=== PATIENT | male | born 1960 | race Two or more races ===

== ENCOUNTER 2016-09-24 08:53 | Inpatient (IN) | payer MEDICARE, MEDICAID ==
[~2016-09-24] VITALS: Ht 177.8 cm; Wt 77.6 kg
[~2016-09-24 08:53] MED LIST: ASPI-869 PO; CLOP75TA2 PO; IBUP-1955 PO; METF-494 PO; METO50TA3 PO; SITA25TA PO; [UNRECOGNIZED DRUG - CODE]
[2016-09-24 09:23] LABS: *BILIRUBIN,URIN NEGATIVE (NEGATIVE); *BLOOD, URINE NEGATIVE (NEGATIVE); *CLARITY,URINE CLEAR (CLEAR); *COLOR,URINE YELLOW (YELLOW); *KETONES,URINE NEGATIVE (NEGATIVE); *PROTEIN,URINE NEGATIVE (NEGATIVE); LEUKOCYTE ESTERASE ,URINE NEGATIVE (NEGATIVE); NITRITE, URINE NEGATIVE (NEGATIVE); UGLUCOSE TRACE (NEGATIVE)
[2016-09-24 09:28] LABS: CALCIUM 9.2 mg/dL (8.5-10.1); CARBON DIOXIDE 30 mmol/L (21-32); CHLORIDE 102 mmol/L (98-107); GFR 78 mL/min (>60); GLUCOSE 248 mg/dL (74-106); POTASSIUM 4.1 mmol/L (3.5-5.1); SODIUM SERUM 140 mmol/L (136-145); UREA NITROGEN, BLOOD 11 mg/dL (7-18)
[2016-09-24 09:33] LABS: ALANINE AMINOTRANSFERASE 37 U/L (16-63); ALBUMIN 4.5 g/dL (3.4-5.0); ALKALINE PHOSPHATASE 71 U/L (50-136); ASPARTATE AMINOTRANSFERASE 20 U/L (15-37); BASOPHILS # (AUTO) 0.1 K/uL (0.0-8.0); BASOPHILS % (AUTO) 0.6 % (0.0-2.0); BILIRUBIN,DIRECT 0.1 mg/dL (0.0-0.2); BILIRUBIN,TOTAL 0.7 mg/dL (0.2-1.0); EOSINOPHILS # (AUTO) 0.1 K/uL (0.0-0.7); EOSINOPHILS % (AUTO) 0.8 % (0.0-7.0); ETHANOL < 3 MG/DL (0-0); HEMATOCRIT 47.7 % (40-50); HEMOGLOBIN 17.3 G/DL (14.0-18.0); LYMPHOCYTES # (AUTO) 1.5 K/uL (20.0-40.0); MEAN CORPUSCULAR HEMOGLOBIN 32.6 UUG (27.0-31.0); MEAN CORPUSCULAR HGB CONC 36 g/dL (32.0-37.0); MEAN CORPUSCULAR VOLUME 89.6 FL (82.0-92.0); MONOCYTES # (AUTO) 0.5 K/uL (2.0-10.0); MONOCYTES % (AUTO) 5.7 % (0.0-11.0); NEUTROPHILS # (AUTO) 6.5 K/uL (1.8-8.9); NEUTROPHILS % (AUTO) 75.9 % (38.5-71.5); RED BLOOD CELL COUNT(AUTO) 5.32 MIL/UL (4.7-6.1); RED CELL DISTRIBUTION WIDTH 12.3 % (11.5-14.5); TOTAL PROTEIN, SERUM 7.9 g/dL (6.4-8.2)
[2016-09-24 09:34] LABS: PLATELET COUNT (AUTO) 139 K/UL (150-450)
[2016-09-24 09:35] LABS: TROPONIN I < 0.017 ng/mL (0.00-0.056); WHITE BLOOD COUNT (AUTO) 8.7 K/UL (4.0-11.2)
[2016-09-24 09:36] LABS: ACETAMINOPHEN < 2.0 ug/mL (10-30)
[2016-09-24 09:43] LABS: *AMPHETAMINE, URINE NEGATIVE (NEGATIVE); *BARBITURATE, URINE NEGATIVE (NEGATIVE); *CANNABINOID, URINE POSITIVE (NEGATIVE); *COCCAINE, URINE NEGATIVE (NEGATIVE); *OPIATE, URINE POSITIVE (NEGATIVE); *PHENCYCLIDINE SCREEN,URINE NEGATIVE (NEGATIVE)
[2016-09-24 09:44] LABS: BACTERIA,URINE NONE SEEN /HPF (NONE SEEN); RBC,URINE 0-3 /HPF (0-3); SQUAMOUS EPITHELIAL CELL,UR FEW /HPF (NONE SEEN); URINE AMORPHOUS PHOSPHATES FEW /HPF; WBC,URINE 0-3 /HPF (0-3)
[2016-09-24 09:45] LABS: MUCUS,URINE FEW /LPF (0-FEW)
[2016-09-24 09:46] LABS: AMMONIA < 10 umol/L (11-32)
[2016-09-24 09:48] LABS: LACTIC ACID 1.8 mmol/L (0.4-2.0)
[2016-09-24 10:43] LABS: THYROID STIMULATING HORMONE 1.328 mIU/mL (0.358-3.740)
[2016-09-24 12:30] VITALS: BP 134/85
[2016-09-24] MEDS ORDERED: LORAZEPAM 1 MG TABLET PO PRN (13:00)
[2016-09-24] MEDS ORDERED: MAG HYDROX/AL HYDROX/SIMETH 30 ML LIQUID UDC PO PRN (13:00)
[2016-09-24] MEDS ORDERED: MAGNESIUM HYDROXIDE 30 ML LIQUID UDC PO PRN (13:00)
[2016-09-24] MEDS ORDERED: ACETAMINOPHEN 325 MG TABLET PO PRN (13:00)
[2016-09-24] MEDS ORDERED: QUET100T PO (13:15)
[2016-09-24] MEDS ORDERED: QUET25TA PO (13:15)
[2016-09-24] MEDS ORDERED: DEXTROSE 50% 50 ML DISP.SYRIN IV PRN (15:00)
[2016-09-24 15:44] VITALS: BP 127/66
[2016-09-24] MEDS: BLOOD SUGAR DIAGNOSTIC 1 EACH STRIP VI SCH ×2 (16:34→20:19)
[2016-09-24] MEDS: INSULIN REGULAR, HUMAN 300 UNIT/3 ML VIAL SQ PRN ×2 (16:51→20:19)
[2016-09-24] MEDS: NICOTINE 21 MG/24HR PATCH TD SCH (16:53)
[2016-09-24 20:00] VITALS: BP 127/82
[2016-09-24] MEDS: TEMAZEPAM 7.5 MG CAPSULE PO PRN (20:17)
[2016-09-24] MEDS: CLOPIDOGREL 75 MG TABLET PO SCH (20:17)
[2016-09-25] MEDS: BLOOD SUGAR DIAGNOSTIC 1 EACH STRIP VI SCH ×4 (06:42→20:38)
[2016-09-25 07:30] VITALS: BP 115/86
[2016-09-25] MEDS: LINAGLIPTIN 5 MG TABLET PO SCH (08:05)
[2016-09-25] MEDS: ASPIRIN EC 81 MG TABLET.DR PO SCH (08:06)
[2016-09-25] MEDS: NICOTINE 21 MG/24HR PATCH TD SCH (08:06)
[2016-09-25] MEDS: INSULIN REGULAR, HUMAN 300 UNIT/3 ML VIAL SQ PRN ×3 (08:07→20:49)
[2016-09-25] MEDS ORDERED: Medication Not On Formulary EA (Metformin Hcl (Metformin Hcl Er) 1 TAB) PO SCH (09:00)
[2016-09-25 15:34] VITALS: BP 134/90
[2016-09-25 20:00] VITALS: BP 136/84
[2016-09-25] MEDS: CLOPIDOGREL 75 MG TABLET PO SCH (20:39)
[2016-09-25] MEDS: ATORVASTATIN 10 MG TABLET PO SCH (20:39)
[2016-09-25] MEDS: risperiDONE 1 MG TABLET PO SCH (20:40)
[2016-09-25] MEDS: HYDROCODONE/APAP 5-325MG TABLET PO PRN (22:24)
[2016-09-25] MEDS: TEMAZEPAM 7.5 MG CAPSULE PO PRN (23:47)
[2016-09-26] MEDS: BLOOD SUGAR DIAGNOSTIC 1 EACH STRIP VI SCH ×4 (06:18→20:26)
[2016-09-26 07:30] VITALS: BP 126/89
[2016-09-26] MEDS: LINAGLIPTIN 5 MG TABLET PO SCH (08:33)
[2016-09-26] MEDS: risperiDONE 1 MG TABLET PO SCH (08:34)
[2016-09-26] MEDS: ASPIRIN EC 81 MG TABLET.DR PO SCH (08:34)
[2016-09-26] MEDS: NICOTINE 21 MG/24HR PATCH TD SCH (08:34)
[2016-09-26] MEDS: INSULIN REGULAR, HUMAN 300 UNIT/3 ML VIAL SQ PRN ×3 (08:36→16:46)
[2016-09-26] MEDS: HYDROCODONE/APAP 5-325MG TABLET PO PRN ×2 (08:43→20:31)
[2016-09-26] MEDS ORDERED: DEXTROSE 50% 50 ML DISP.SYRIN IV PRN (10:15)
[2016-09-26 15:12] VITALS: BP 140/86
[2016-09-26] MEDS: risperiDONE 2 MG TABLET PO SCH (20:26)
[2016-09-26] MEDS: ATORVASTATIN 10 MG TABLET PO SCH (20:27)
[2016-09-26] MEDS: CLOPIDOGREL 75 MG TABLET PO SCH (20:27)
[2016-09-26 20:30] VITALS: BP 122/76
[2016-09-26] MEDS: INSULIN REGULAR, HUMAN 300 UNITS/3 ML VIAL SQ PRN (20:35)
[2016-09-26] MEDS: TEMAZEPAM 7.5 MG CAPSULE PO PRN (22:32)
[2016-09-27] MEDS: BLOOD SUGAR DIAGNOSTIC 1 EACH STRIP VI SCH ×4 (06:13→20:13)
[2016-09-27 07:30] VITALS: BP 126/56
[2016-09-27] MEDS: INSULIN REGULAR, HUMAN 300 UNIT/3 ML VIAL SQ PRN ×2 (07:43→10:50)
[2016-09-27] MEDS: risperiDONE 1 MG TABLET PO SCH (08:00)
[2016-09-27] MEDS: LINAGLIPTIN 5 MG TABLET PO SCH (08:00)
[2016-09-27] MEDS: ASPIRIN EC 81 MG TABLET.DR PO SCH (08:00)
[2016-09-27] MEDS: NICOTINE 21 MG/24HR PATCH TD SCH (08:00)
[2016-09-27 16:00] VITALS: BP 116/83
[2016-09-27] MEDS ORDERED: CLONIDINE HCL 0.1 MG TABLET PO PRN (16:15)
[2016-09-27] MEDS: HYDROCODONE/APAP 5-325MG TABLET PO PRN (19:37)
[2016-09-27 19:45] VITALS: BP 126/90
[2016-09-27] MEDS: CLOPIDOGREL 75 MG TABLET PO SCH (20:05)
[2016-09-27] MEDS: ATORVASTATIN 10 MG TABLET PO SCH (20:05)
[2016-09-27] MEDS: risperiDONE 2 MG TABLET PO SCH (20:05)
[2016-09-27] MEDS: INSULIN REGULAR, HUMAN 300 UNITS/3 ML VIAL SQ PRN (20:26)
[2016-09-27] MEDS: TEMAZEPAM 7.5 MG CAPSULE PO PRN (22:41)
[2016-09-28] MEDS: BLOOD SUGAR DIAGNOSTIC 1 EACH STRIP VI SCH (06:15)
[2016-09-28 07:30] VITALS: BP 129/95
[2016-09-28] MEDS: NICOTINE 21 MG/24HR PATCH TD SCH (08:38)
[2016-09-28] MEDS: risperiDONE 1 MG TABLET PO SCH (08:39)
[2016-09-28] MEDS: ASPIRIN EC 81 MG TABLET.DR PO SCH (08:39)
[2016-09-28] MEDS: LINAGLIPTIN 5 MG TABLET PO SCH (08:43)
== END 2016-09-28 09:30 | disposition home or self-care (01) | DRG 885 ==
LOC: ER 08:55 → GPS 12:07
PROVIDERS: ADMIT Internal Medicine; ATTEND Psychiatry & Neurology Psychiatry
DX: F29 Unspecified psychosis not due to a substance or known physiological condition (principal); E11.65 Type 2 diabetes mellitus with hyperglycemia; D69.6 Thrombocytopenia, unspecified; E78.5 Hyperlipidemia, unspecified; I10 Essential (primary) hypertension; I25.10 Atherosclerotic heart disease of native coronary artery without angina pectoris; I25.2 Old myocardial infarction; M47.812 Spondylosis without myelopathy or radiculopathy, cervical region; J45.909 Unspecified asthma, uncomplicated; M50.30 Other cervical disc degeneration, unspecified cervical region; M47.814 Spondylosis without myelopathy or radiculopathy, thoracic region; F17.210 Nicotine dependence, cigarettes, uncomplicated; Z98.61 Coronary angioplasty status; I35.1 Nonrheumatic aortic (valve) insufficiency; R90.89 Other abnormal findings on diagnostic imaging of central nervous system; Z91.5 Personal history of self-harm; G89.29 Other chronic pain; Z79.899 Other long term (current) drug therapy; F20.0 Paranoid schizophrenia; F12.10 Cannabis abuse, uncomplicated; R93.1 Abnormal findings on diagnostic imaging of heart and coronary circulation
CPT/HCPCS: 36415; 70030-TC; 70450; 71010; 72125; 80307; 83605; 84443; 85025; 85730; 87040; 87086; 93005; 97001; A4663; G0480-TC; G6040-TC; J1815

== ENCOUNTER 2016-12-12 23:14 | Emergency (ER) | payer MEDICARE, MEDICAID ==
[~2016-12-12] VITALS: Ht 180.3 cm; Wt 84.8 kg
[~2016-12-12 23:14] MED LIST changes: +CLOP75TA15 PO; -CLOP75TA2 PO
--- NOTE | 2016-12-12 23:52 | NUR ---
Patient BIB private ambulance for increased agitation and confusion/patient has been refusing his medications/and patient has been having visual hallucinations. Information obtained from daughter who is at bedside. To room 5A.
[2016-12-13 00:31] LABS: CARBON DIOXIDE 23 mmol/L (21-32); CHLORIDE 102 mmol/L (98-107); CREATININE 1.2 mg/dL (0.6-1.3); ETHANOL 5 MG/DL (0-0); GLUCOSE 297 mg/dL (74-106); POTASSIUM 4.3 mmol/L (3.5-5.1); UREA NITROGEN, BLOOD 13 mg/dL (7-18)
[2016-12-13 00:40] LABS: ALANINE AMINOTRANSFERASE 21 U/L (16-63); ALKALINE PHOSPHATASE 61 U/L (50-136); ASPARTATE AMINOTRANSFERASE 10 U/L (15-37); BASOPHILS # (AUTO) 0.1 K/uL (0.0-8.0); BASOPHILS % (AUTO) 0.7 % (0.0-2.0); BILIRUBIN,DIRECT 0.1 mg/dL (0.0-0.2); BILIRUBIN,TOTAL 0.5 mg/dL (0.2-1.0); EOSINOPHILS # (AUTO) 0.1 K/uL (0.0-0.7); EOSINOPHILS % (AUTO) 0.5 % (0.0-7.0); HEMATOCRIT 47.1 % (40-50); HEMOGLOBIN 16.5 G/DL (14.0-18.0); LYMPHOCYTES # (AUTO) 2.4 K/UL (0.8-4.8); LYMPHOCYTES % (AUTO) 17.9 % (20.5-51.5); MEAN CORPUSCULAR HEMOGLOBIN 31.8 UUG (27.0-31.0); MEAN CORPUSCULAR HGB CONC 35 g/dL (32.0-37.0); MEAN CORPUSCULAR VOLUME 90.9 FL (82.0-92.0); MONOCYTES # (AUTO) 0.7 K/UL (0.1-1.30); MONOCYTES % (AUTO) 5.1 % (0.0-11.0); NEUTROPHILS # (AUTO) 9.9 K/UL (1.8-8.9); NEUTROPHILS % (AUTO) 75.8 % (38.5-71.5); PLATELET COUNT (AUTO) 160 K/UL (150-450); RED BLOOD CELL COUNT(AUTO) 5.18 MIL/UL (4.7-6.1); TOTAL PROTEIN, SERUM 7.1 g/dL (6.4-8.2); WHITE BLOOD COUNT (AUTO) 13.2 K/UL (4.0-11.2)
[2016-12-13 00:44] LABS: THYROID STIMULATING HORMONE 1.525 mIU/mL (0.358-3.740)
[2016-12-13 00:47] LABS: ACETAMINOPHEN < 2.0 ug/mL (10-30)
[2016-12-13 00:54] LABS: *BILIRUBIN,URIN NEGATIVE (NEGATIVE); *BLOOD, URINE NEGATIVE (NEGATIVE); *CLARITY,URINE CLEAR (CLEAR); *COLOR,URINE YELLOW (YELLOW); *KETONES,URINE NEGATIVE (NEGATIVE); *PROTEIN,URINE NEGATIVE (NEGATIVE); *UROBILINOGEN,URINE 0.2 E.U./dl (NORMAL); LEUKOCYTE ESTERASE ,URINE NEGATIVE (NEGATIVE); NITRITE, URINE NEGATIVE (NEGATIVE); UGLUCOSE 2+ (NEGATIVE)
[2016-12-13 00:58] LABS: *AMPHETAMINE, URINE NEGATIVE (NEGATIVE); *BARBITURATE, URINE NEGATIVE (NEGATIVE); *CANNABINOID, URINE POSITIVE (NEGATIVE); *COCCAINE, URINE NEGATIVE (NEGATIVE); *OPIATE, URINE POSITIVE (NEGATIVE); *PHENCYCLIDINE SCREEN,URINE NEGATIVE (NEGATIVE)
[2016-12-13 01:01] LABS: BACTERIA,URINE FEW /HPF (NONE SEEN); RBC,URINE 0-3 /HPF (0-3); SQUAMOUS EPITHELIAL CELL,UR FEW /HPF (NONE SEEN); WBC,URINE 0-3 /HPF (0-3)
--- NOTE | 2016-12-13 02:30 | NUR ---
Jacinto Villa at bedside for PET Evaluation.
--- NOTE | 2016-12-13 03:20 | NUR ---
Jacinto Villa (PET team) informed staff that he is unable to locate an available bed at this time. He will attempt to place patient in morning and patient to remain in ER until an available bed can be located.
[2016-12-13] MEDS: LORAZEPAM 0.5 MG TABLET PO ONE (03:22)
[2016-12-13] MEDS ORDERED: LORAZEPAM 1 MG TABLET ONE (03:32)
--- NOTE | 2016-12-13 03:59 | NUR ---
Patient is resting comfortably in bed with eyes closed
--- NOTE | 2016-12-13 05:10 | NUR ---
Patient is resting comfortably in bed with eyes closed
--- NOTE | 2016-12-13 06:30 | NUR ---
Signed out by Dr. Hampton. On 1602. Seen by Jacinto. Pending transfer this AM. Medically stable for psych.
--- NOTE | 2016-12-13 07:32 | NUR ---
Pt recieved in bed w/ both eyes closed, NAD noted. 1 to 1 sitter at the bedside for satety.
--- NOTE | 2016-12-13 08:04 | NUR ---
Pt ate breakfast prior to checking his blood glucose.
--- NOTE | 2016-12-13 08:45 | NUR ---
Spoke to Valerio (Psych intake at [facility]), awaiting for bed availibity and info. Pt is resting comfortably in bed, NAD noted.
--- NOTE | 2016-12-13 10:52 | NUR ---
Spoke to VU (IRENE sup), bed info provided. Called [facility] for transfer.
--- NOTE | 2016-12-13 11:44 | NUR ---
REPORT GIVEN TO MELISA. ALVARES AT [facility].
--- NOTE | 2016-12-13 12:06 | NUR ---
REPORT GIVEN TO EMT'S TRANSFER UNIT. PT LEFT ER IN STABLE CONDITION AND ALL BELONING SENT W/ PT WELL THE ORIGINAL 1423 PAPER WORK.
== END 2016-12-13 12:16 | disposition short-term general hospital (02) ==
LOC: ER 23:24
DX: F23 Brief psychotic disorder (principal); I10 Essential (primary) hypertension; E78.5 Hyperlipidemia, unspecified; Z95.5 Presence of coronary angioplasty implant and graft; E11.9 Type 2 diabetes mellitus without complications; F20.9 Schizophrenia, unspecified; F17.200 Nicotine dependence, unspecified, uncomplicated; Z91.018 Allergy to other foods; Z79.82 Long term (current) use of aspirin
CPT/HCPCS: 36415; 71010; 80307; 84443; 85025; 93005; A4663; G0480; G0480-TC

== ENCOUNTER 2017-08-14 13:01 | Inpatient (IN) | payer MEDICARE, MEDICAID ==
[~2017-08-14] VITALS: Ht 177.8 cm; Wt 74.8 kg
[~2017-08-14 13:01] MED LIST changes: +METO50TA16 PO; -METO50TA3 PO
--- NOTE | 2017-08-14 14:13 | NUR ---
PT IS IN ROOM #2B. DR FORD EVALUATED THE PT.
[2017-08-14] MEDS ORDERED: DEXA4TAB PO (14:16)
[2017-08-14] MEDS ORDERED: METO-356 PO (14:16)
[2017-08-14] MEDS ORDERED: PREG75CA PO (14:16)
[2017-08-14] MEDS ORDERED: GLIP5TAB13 PO (14:16)
[2017-08-14] MEDS ORDERED: FLUO20TA28 PO (14:16)
[2017-08-14] MEDS ORDERED: FLUC150T5 PO (14:16)
[2017-08-14] MEDS ORDERED: FLUT16SP NS (14:16)
[2017-08-14] MEDS ORDERED: MELO-107 PO (14:16)
[2017-08-14] MEDS ORDERED: SITA1TAB2 PO (14:16)
[2017-08-14] MEDS ORDERED: DONE5TAB34 PO (14:16)
[2017-08-14] MEDS ORDERED: VARE1TAB21 PO (14:16)
[2017-08-14] MEDS ORDERED: CHLO1LIQ MC (14:16)
[2017-08-14] MEDS ORDERED: SITA100T PO (14:16)
[2017-08-14] MEDS ORDERED: CEFU500T66 PO (14:16)
[2017-08-14] MEDS ORDERED: CLON0.5T4 PO (14:16)
[2017-08-14] MEDS ORDERED: IBUP-1955 PO (14:38)
[2017-08-14] MEDS ORDERED: BLOO-170 IN (14:38)
[2017-08-14] MEDS ORDERED: QUET100T PO (14:38)
[2017-08-14] MEDS ORDERED: QUET25TA PO (14:38)
[2017-08-14] MEDS ORDERED: ALPR0.5T PO (14:38)
[2017-08-14] MEDS ORDERED: ATOR40TA PO (14:38)
[2017-08-14] MEDS ORDERED: HYDR-548 PO (14:38)
[2017-08-14] MEDS ORDERED: ARIP5TAB10 PO (14:38)
[2017-08-14] MEDS ORDERED: ACET1TAB23 PO (14:38)
[2017-08-14] MEDS ORDERED: NAPR500T6 PO (14:38)
[2017-08-14] MEDS ORDERED: SUMA100T16 PO (14:38)
[2017-08-14] MEDS ORDERED: D-ME118S12 PO (14:38)
[2017-08-14] MEDS ORDERED: PRIM50TA PO (14:38)
[2017-08-14] MEDS ORDERED: RISP3TAB14 PO (14:38)
[2017-08-14] MEDS ORDERED: BUDE10.2 IH (14:38)
[2017-08-14] MEDS ORDERED: CYCL30DR OP (14:38)
[2017-08-14] MEDS ORDERED: OMEP40CA37 PO (14:38)
[2017-08-14] MEDS ORDERED: ROSU10TA PO (14:38)
[2017-08-14 14:53] LABS: BASOPHILS # (AUTO) 0.1 K/uL (0.0-8.0); BASOPHILS % (AUTO) 0.9 % (0.0-2.0); EOSINOPHILS # (AUTO) 0.1 K/uL (0.0-0.7); EOSINOPHILS % (AUTO) 0.6 % (0.0-7.0); HEMATOCRIT 46.3 % (36.7-47.1); HEMOGLOBIN 16.4 g/dL (12.5-16.3); LYMPHOCYTES % (AUTO) 20.5 % (20.5-51.5); MEAN CORPUSCULAR HEMOGLOBIN 31.5 uug (23.8-33.4); MEAN CORPUSCULAR HGB CONC 35 g/dL (32.5-36.3); MEAN CORPUSCULAR VOLUME 89.1 fL (73.0-96.2); MONOCYTES # (AUTO) 0.9 K/uL (2.0-10.0); MONOCYTES % (AUTO) 9.3 % (0.0-11.0); NEUTROPHILS # (AUTO) 6.6 K/uL (1.8-8.9); NEUTROPHILS % (AUTO) 68.7 % (38.5-71.5); PLATELET COUNT (AUTO) 138 K/uL (152-348); RED BLOOD CELL COUNT(AUTO) 5.19 MIL/uL (4.06-5.63); WHITE BLOOD COUNT (AUTO) 9.6 K/uL (3.6-10.2)
[2017-08-14 15:01] LABS: CARBON DIOXIDE 26 mmol/L (21-32); CHLORIDE 102 mmol/L (98-107); GLUCOSE 149 mg/dL (74-106); POTASSIUM 3.8 mmol/L (3.5-5.1); UREA NITROGEN, BLOOD 14 mg/dL (7-18)
[2017-08-14 15:07] LABS: ALANINE AMINOTRANSFERASE 19 U/L (16-63); ALKALINE PHOSPHATASE 53 U/L (50-136); ASPARTATE AMINOTRANSFERASE 10 U/L (15-37); BILIRUBIN,DIRECT 0.2 mg/dL (0.0-0.2); BILIRUBIN,TOTAL 1.1 mg/dL (0.2-1.0); TOTAL PROTEIN, SERUM 7.1 g/dL (6.4-8.2)
[2017-08-14 15:09] LABS: ACETAMINOPHEN < 2.0 ug/mL (10-30)
[2017-08-14 15:21] LABS: *BILIRUBIN,URIN NEGATIVE (NEGATIVE); *BLOOD, URINE NEGATIVE (NEGATIVE); *CLARITY,URINE CLEAR (CLEAR); *COLOR,URINE YELLOW (YELLOW); *KETONES,URINE NEGATIVE (NEGATIVE); *PROTEIN,URINE NEGATIVE (NEGATIVE); *UROBILINOGEN,URINE 0.2 E.U./dl (NORMAL); LEUKOCYTE ESTERASE ,URINE NEGATIVE (NEGATIVE); NITRITE, URINE NEGATIVE (NEGATIVE); PH,URINE 5.5 (5.0-8.0); UGLUCOSE NEGATIVE (NEGATIVE)
[2017-08-14 15:22] LABS: ETHANOL < 3 MG/DL (0-0)
[2017-08-14 15:26] LABS: *AMPHETAMINE, URINE NEGATIVE (NEGATIVE); *BARBITURATE, URINE NEGATIVE (NEGATIVE); *CANNABINOID, URINE NEGATIVE (NEGATIVE); *COCCAINE, URINE NEGATIVE (NEGATIVE); *OPIATE, URINE NEGATIVE (NEGATIVE); *PHENCYCLIDINE SCREEN,URINE NEGATIVE (NEGATIVE)
[2017-08-14 15:30] LABS: THYROID STIMULATING HORMONE 3.144 mIU/mL (0.358-3.740)
[2017-08-14 15:39] LABS: WBC,URINE 0-3 /HPF (0-3)
--- NOTE | 2017-08-14 15:45 | NUR ---
CRISIS EXTRACTOR FILLER ANGELA CORCORAN WAS CALLED. TORY IS 1 HOUR. PT IS RESTING IN BED COMFORTABLY. NO S/S OF ACUTE DISTRESS. CONTINUE TO MONITOR THE PT.
--- NOTE | 2017-08-14 18:43 | NUR ---
PT WAS EVALUATED BY ANGELA CORCORAN. REPORT WAS GIVEN TO MHU RN DEAN. REPORT WAS GIVEN TO REQUIREMENTS MANAGER RN.
--- NOTE | 2017-08-14 19:33 | NUR ---
PT IN ROUTE TO [facility]
[2017-08-14 20:00] VITALS: BP 129/85
[2017-08-14] MEDS ORDERED: MAGNESIUM HYDROXIDE 30 ML LIQUID UDC PO PRN (20:15)
[2017-08-14] MEDS ORDERED: MAG HYDROX/AL HYDROX/SIMETH 30 ML LIQUID UDC PO PRN (20:15)
[2017-08-14] MEDS: TEMAZEPAM 7.5 MG CAPSULE PO PRN (21:22)
[2017-08-14] MEDS: ACETAMINOPHEN 325 MG TABLET PO PRN (21:22)
--- NOTE | 2017-08-14 21:22 | NUR ---
PATIENT COMPLAIN OF INSOMNIA AND GEN BODY PAIN, GIVEN TYLENOL AND RESTORIL FOR SLEEP, INSTRUCTED TO STAY IN BED AND NOT TO AMBULATE UNLESS ITS NECESSARY, CONT TO MONITOR.
[2017-08-14] MEDS ORDERED: DEXTROSE 50% 50 ML DISP.SYRIN IV PRN (22:00)
--- NOTE | 2017-08-14 22:36 | NUR ---
PATIENT RECEIVED FROM ER AT 2130 VIA [facility]. PATIENT CALM, COOPERATIVE, HAS FLAT AFFECT, ANXIOUS, PARANOID, SUSPICIOUS. PATIENT REFUSED TO SIGN ADMISSION PAPER, BUT WAS ABLE TO ANSWER BASIC QUESTIONS. PATIENT STATED A DAILY SMOKER, SMOKING 1 PACK DAILY. PATIENT DENIES ALCOHOL OR DRUG USE, HOWEVER READING PAST HISTORY PATIENT SUBSTANCE ABUSE MARIJUANA. SKIN SHOWS ABRASION TO LEFT AND RIGHT LEGS, SCABS TO BACK. PATIENT IS AMBULATORY CONTINENT OF BOWEL AND BLADDER. PATIENT DENIES SI, WILL CONTINUE TO MONITOR. PATIENT ORIENTED TO UNIT, ROOM, AND RESTROOM. PATIENT RIGHTS HANDBOOK GIVEN AND ADVISEMENT. DR. MONZON AND NAS NOTIFIED OF ADMISSION.
--- NOTE | 2017-08-15 05:02 | NUR ---
PATIENT SLEPT FOR FEW HOURS, NO FURTHER COMPLAIN OF PAIN, PATIENT REQUESTED TO NOT TAKE HIS BLOOD PRESSURE BECAUSE HE STATED THAT "IT HURTS HIS MULTIPLE STENT ON HIS CHEST WHEN BLOOD PRESSURE IS TAKEN," STATED THAT "I FELT I'M GOING TO EVERY TIME TAKE MY BLOOD PRESSURE", REDIRECT PATIENT THAT CHECK BP IS IMPORTANT BEFORE GIVING HIM HIS MEDICATIONS, AND IT'S PART OF CARE TO CHECK VITAL SIGNS, PATIENT HAS STRONG BELIEF THAT IT' WILL HURT HIM EVERY BP IS TAKEN. CONT TO MONITOR.
[2017-08-15] MEDS: BLOOD SUGAR DIAGNOSTIC 1 EACH STRIP VI SCH ×4 (06:51→21:04)
[2017-08-15] MEDS: INSULIN REGULAR, HUMAN 300 UNIT/3 ML VIAL SQ PRN ×3 (08:09→16:51)
[2017-08-15] MEDS: NICOTINE 14 MG/24HR PATCH TD SCH (09:19)
[2017-08-15] MEDS: HYDROCODONE/APAP 5-325MG TABLET PO PRN ×3 (09:20→23:49)
[2017-08-15] MEDS: PREGABALIN 25 MG CAPSULE PO SCH (12:21)
[2017-08-15] MEDS ORDERED: SITA1TAB2 PO (12:31)
--- NOTE | 2017-08-15 13:48 | NUR ---
PATIENT VISIBLE IN DAYROOM IN AM, ANXIOUS AFFECT, GUARDED, NO INTERACTION WITH PEERS AND STAFF, ATE 100% BREAKFAST AND LUNCH, BS RESULT IN AM 141, 2 UNITS REGULAR INSULIN GIVEN AND AT MAFG=590, 4 UNITS REGULAR INSULIN GIVEN. MEDICATION COMPLIANT AND COOPERATIVE, C/O H/A, KNEE PAIN AT 8/10, NORCO 1 TABLET PO GIVEN AT 0815, REASSESSED IN AN HOUR, PATIENT STATES PARTIALLY EFFECTIVE. DENIES SUICIDAL IDEATIONS, DENIES HEARING VOICES. PATIENT WENT TO HIS ROOM AFTER LUNCH. WILL CONTINUE TO MONITOR FOR SAFETY, NEEDS AND BEHAVIORAL CHANGES.
--- NOTE | 2017-08-15 15:34 | NUR ---
PATIENT SPENT TIME SLEEPING IN HIS ROOM AFTER LUNCH. SEEN BY DR. MONZON.
[2017-08-15] MEDS: FLUTICASONE PROP NASAL SPRAY 16 GM BOTTLE NS SCH (17:00)
[2017-08-15] MEDS ORDERED: Medication Not On Formulary EA (Pregabalin (Lyrica) 75 MG) PO SCH (17:00)
[2017-08-15] MEDS: SITAGLIPTIN PHOSPHATE 50 MG TABLET PO SCH (17:03)
[2017-08-15] MEDS: glipiZIDE 5 MG TABLET PO SCH (17:03)
[2017-08-15] MEDS: METFORMIN HCL 500 MG TABLET PO SCH (17:03)
[2017-08-15] MEDS: PRIMIDONE 50 MG TABLET PO SCH (17:08)
--- NOTE | 2017-08-15 20:00 | NUR ---
refused vital signs.
[2017-08-15] MEDS: risperiDONE 1 MG TABLET PO SCH (20:49)
[2017-08-15] MEDS: ATORVASTATIN 40 MG TABLET PO SCH (20:49)
[2017-08-15] MEDS: ACETAMINOPHEN 325 MG TABLET PO PRN (20:58)
[2017-08-15] MEDS ORDERED: risperiDONE 1 MG TABLET PO SCH (21:00)
--- NOTE | 2017-08-15 22:00 | NUR ---
received to care, lying in bed, pleasant upon approach. compliant with medications and staff direction. as of 0, he appears to be asleep. no distress noted. will continue to monitor closely.
[2017-08-16] MEDS: HYDROCODONE/APAP 5-325MG TABLET PO PRN ×3 (06:15→21:41)
[2017-08-16] MEDS: BLOOD SUGAR DIAGNOSTIC 1 EACH STRIP VI SCH ×4 (06:16→20:05)
[2017-08-16] MEDS: PANTOPRAZOLE SODIUM 40 MG TABLET.DR PO SCH (07:00)
--- NOTE | 2017-08-16 07:15 | NUR ---
slept 6.5 hours, total. PRN cyrus was given twice this shift, once at 2349, then again at 0615. as of 714, he states good relief from med. refused am labs, and protonix. no distress noted.
[2017-08-16] MEDS: PREGABALIN 25 MG CAPSULE PO SCH (08:50)
[2017-08-16] MEDS: risperiDONE 1 MG TABLET PO SCH ×2 (08:51→20:35)
[2017-08-16] MEDS: METFORMIN HCL 500 MG TABLET PO SCH ×2 (08:51→17:05)
[2017-08-16] MEDS: CLOPIDOGREL 75 MG TABLET PO SCH (08:51)
[2017-08-16] MEDS: glipiZIDE 5 MG TABLET PO SCH ×2 (08:51→17:05)
[2017-08-16] MEDS: SITAGLIPTIN PHOSPHATE 50 MG TABLET PO SCH ×2 (08:52→17:05)
[2017-08-16] MEDS: FLUTICASONE PROP NASAL SPRAY 16 GM BOTTLE NS SCH (08:52)
[2017-08-16] MEDS: NICOTINE 14 MG/24HR PATCH TD SCH (08:53)
[2017-08-16] MEDS: PRIMIDONE 50 MG TABLET PO SCH ×2 (08:53→17:05)
[2017-08-16] MEDS: METOPROLOL SUCCINATE XL 25 MG TAB.SR.24H PO SCH (08:54)
[2017-08-16] MEDS ORDERED: Medication Not On Formulary EA (Omeprazole 40 MG) PO SCH (09:00)
[2017-08-16] MEDS: INSULIN REGULAR, HUMAN 300 UNIT/3 ML VIAL SQ PRN ×2 (09:04→20:36)
--- NOTE | 2017-08-16 11:38 | NUR ---
Firearms Report: Heavy Coil Winder completed and submitted [facility] Firearms Report on 08/16/17.
--- NOTE | 2017-08-16 12:59 | NUR ---
Gps/Photographic Editor- Stays in his room for of the time, encouraged participation in his group therapy. Informed Kendal SOLAR RESOURCE ASSESSOR, pt. refusal to have his b/p check claimed it hurts his stent placement, offered to check b/p on his legs, still refused, pt. claimed he had been taking metoprolol for 7 years not checking his b/p ,checked HR radial 88
--- NOTE | 2017-08-16 15:01 | NUR ---
Initial Discharge Instructions: Patient resides at home with 1 of his daughters [[address], [place] [address]; [phone]]. Per pt, he would like to return home upon discharge. Spoke with patient's daughter, Yuliet ([phone]) who is asking for resources for her father, but is unsure if he will be willing to accept them. SW will continue to collaborate with pt, family, and MD regarding appropriate discharge disposition. SW will form a safe and proper discharge.
--- NOTE | 2017-08-16 20:00 | NUR ---
continues to refuse vital signs.
[2017-08-16] MEDS: ATORVASTATIN 40 MG TABLET PO SCH (20:35)
--- NOTE | 2017-08-16 22:00 | NUR ---
received to care, lying in bed, pleasant upon approach. denies SI, or desire to harm self. compliant with medications and staff direction. PRN norco was given at 2140, for lower extremity pain 09/27. as of 2199, he appears to be asleep. no distress noted. will continue to monitor closely.
[2017-08-17] MEDS: TEMAZEPAM 7.5 MG CAPSULE PO PRN ×2 (01:04→22:47)
[2017-08-17] MEDS: ACETAMINOPHEN 325 MG TABLET PO PRN (01:04)
--- NOTE | 2017-08-17 01:04 | NUR ---
pt is now awake. c/o lower extremity pain 11/27. also c/o insomnia; PRN restoril and tylenol were given. will continue to monitor closely.
--- NOTE | 2017-08-17 02:08 | NUR ---
appears to be asleep. no distress noted.
[2017-08-17] MEDS: BLOOD SUGAR DIAGNOSTIC 1 EACH STRIP VI SCH ×4 (06:13→21:27)
[2017-08-17] MEDS: PANTOPRAZOLE SODIUM 40 MG TABLET.DR PO SCH (06:13)
[2017-08-17] MEDS: CLOPIDOGREL 75 MG TABLET PO SCH (08:16)
[2017-08-17] MEDS: glipiZIDE 5 MG TABLET PO SCH ×2 (08:16→17:23)
[2017-08-17] MEDS: SITAGLIPTIN PHOSPHATE 50 MG TABLET PO SCH ×2 (08:16→17:23)
[2017-08-17] MEDS: PRIMIDONE 50 MG TABLET PO SCH ×2 (08:16→17:23)
[2017-08-17] MEDS: METFORMIN HCL 500 MG TABLET PO SCH ×2 (08:16→17:23)
[2017-08-17] MEDS: risperiDONE 1 MG TABLET PO SCH ×2 (08:16→21:28)
[2017-08-17] MEDS: PREGABALIN 25 MG CAPSULE PO SCH (08:17)
[2017-08-17] MEDS: NICOTINE 14 MG/24HR PATCH TD SCH (08:18)
[2017-08-17] MEDS: HYDROCODONE/APAP 5-325MG TABLET PO PRN ×2 (09:13→15:42)
[2017-08-17] MEDS: METOPROLOL SUCCINATE XL 25 MG TAB.SR.24H PO SCH (09:40)
--- NOTE | 2017-08-17 21:00 | NUR ---
RECEIVED PATIENT IN HIS ROOM IN BED. HE WAS NOTED A/O X 2 ABLE TO AMBULATE WITH STEADY GAIT AND ABLE TO MAKE HIS NEEDS KNOWN. HE IS NOTED PLEASANT, COOPERATIVE AND COMPLIANT WITH MEDICATION REGIMENT AT THIS TIME. HOWEVER, HE CONTINUE REFUSING VITAL SIGNS. PATIENT NOTED WITHDRAWN AT THIS TIME. DENIES SI/HI. DENIES HEARING VOICES. SAFETY WAS EMPHASIS. WILL CONTINUE TO MONITOR CLOSELY.
[2017-08-17] MEDS: ATORVASTATIN 40 MG TABLET PO SCH (21:28)
--- NOTE | 2017-08-17 22:50 | NUR ---
WHILE DOING ROUNDS, PATIENT WAS NOTED AWAKE. HE REQUESTED A SLEEPING PILL. RESTORIL 7.5MG PO PRN WAS GIVEN PER NURSE ASSESSMENT AND PT REQUEST. WILL CONTINUE TO MONITOR CLOSELY.
[2017-08-18] MEDS: HYDROCODONE/APAP 5-325MG TABLET PO PRN ×3 (04:08→17:30)
[2017-08-18] MEDS: PANTOPRAZOLE SODIUM 40 MG TABLET.DR PO SCH (06:18)
--- NOTE | 2017-08-18 06:18 | NUR ---
PATIENT BLOOD GLUCOSE LEVEL IS 58. 6OZ ORANGE JUICE WERE GIVEN PO. NO S/S OF HYPOGLYCEMIA NOTED AT THIS TIME. NO CHANGES IN LOC. PATIENT IN NO DISTRESS. WILL RECHECKS BGL IN 15 MIN. WILL CONTINUE TO MONITOR CLOSELY.
[2017-08-18] MEDS: BLOOD SUGAR DIAGNOSTIC 1 EACH STRIP VI SCH ×5 (06:44→20:17)
--- NOTE | 2017-08-18 06:48 | NUR ---
BGL WAS RECHECKED. 121. PATENT REFUSED PROTONIX AND HE ALSO REFUSED A SHOWER. HE SLEPT FOR APPROX 7.30HRS THROUGH THE NIGHT. WILL CONTINUE TO MONITOR.
[2017-08-18] MEDS: METFORMIN HCL 500 MG TABLET PO SCH (08:28)
[2017-08-18] MEDS: risperiDONE 1 MG TABLET PO SCH ×3 (08:28→17:18)
[2017-08-18] MEDS: CLOPIDOGREL 75 MG TABLET PO SCH (08:28)
[2017-08-18] MEDS: SITAGLIPTIN PHOSPHATE 50 MG TABLET PO SCH (08:28)
[2017-08-18] MEDS: PREGABALIN 25 MG CAPSULE PO SCH (08:28)
[2017-08-18] MEDS: glipiZIDE 5 MG TABLET PO SCH (08:28)
[2017-08-18] MEDS: PRIMIDONE 50 MG TABLET PO SCH ×2 (08:29→17:18)
[2017-08-18] MEDS: NICOTINE 14 MG/24HR PATCH TD SCH (08:30)
[2017-08-18] MEDS: METOPROLOL SUCCINATE XL 25 MG TAB.SR.24H PO SCH (08:30)
--- NOTE | 2017-08-18 08:44 | NUR ---
Gps/Acreage Reporter-Patient still refusing blood draws as well as b/p check , per patient he has own reason why he does not want blood draws per pt." I am a very bahai man, i am not crazy"claimed there is a possibility he will let them check his blood pressure as well as blood draws by sunday or per pt.Noted face flushed, 02 sat 98%, HR 89 reg.no distress.
[2017-08-18] MEDS: INSULIN REGULAR, HUMAN 300 UNIT/3 ML VIAL SQ PRN ×2 (17:20→20:27)
--- NOTE | 2017-08-18 19:51 | NUR ---
Received patient sitting on bed. No s/s of distress noted. Reported having no pain at this time. Encouraged to call for help whenever needed. Will continue to monitor.
[2017-08-18] MEDS: ATORVASTATIN 40 MG TABLET PO SCH (20:17)
[2017-08-18] MEDS: TEMAZEPAM 7.5 MG CAPSULE PO PRN (22:27)
[2017-08-18] MEDS: ACETAMINOPHEN 325 MG TABLET PO PRN (22:27)
--- NOTE | 2017-08-18 23:01 | NUR ---
Atorvastatin for 2100 refused despite teaching. Insulin administered per sliding scale. Snacks offered and consumed. Tylenol PRN and Restoril PRN given per MD order, per patient's request.
[2017-08-19] MEDS: HYDROCODONE/APAP 5-325MG TABLET PO PRN ×2 (00:47→16:00)
--- NOTE | 2017-08-19 00:50 | NUR ---
[place] PRN given as ordered for c/o pain on R thigh. Will assess for effectiveness and continue to monitor.
[2017-08-19] MEDS: PANTOPRAZOLE SODIUM 40 MG TABLET.DR PO SCH (06:01)
[2017-08-19] MEDS: BLOOD SUGAR DIAGNOSTIC 1 EACH STRIP VI SCH ×4 (06:21→20:18)
[2017-08-19] MEDS: PREGABALIN 25 MG CAPSULE PO SCH (08:06)
[2017-08-19] MEDS: CLOPIDOGREL 75 MG TABLET PO SCH (08:06)
[2017-08-19] MEDS: NICOTINE 14 MG/24HR PATCH TD SCH (08:07)
[2017-08-19] MEDS: PRIMIDONE 50 MG TABLET PO SCH ×2 (08:07→16:44)
[2017-08-19] MEDS: METOPROLOL SUCCINATE XL 25 MG TAB.SR.24H PO SCH (08:07)
[2017-08-19] MEDS: risperiDONE 1 MG TABLET PO SCH ×3 (08:08→17:11)
[2017-08-19] MEDS: INSULIN REGULAR, HUMAN 300 UNIT/3 ML VIAL SQ PRN ×3 (12:18→20:22)
--- NOTE | 2017-08-19 12:40 | NUR ---
Gps/Guardian Family Member- Per patient he might let them draw his blood by sunday, but with the condition that they will only take small amount of blood not dripping, patient was reassure. Patient having family issues , needed Gun Fertilizer to intervene or assist pt, in planning who is the primary person he want to designate as DPOA. Per patient he rasied his 2 daughters by himself ,(Yuliet 20 years olf and Linda 17 years old ). Strage , been seperated w/ her for 14 years per pt. suddenly coming on the picture and trying to decides what is good and necessary for him.Informed will relay to SW. possibility to assist.w/ the family issues.
[2017-08-19] MEDS: DEXAMETHASONE 4 MG TABLET PO SCH ×2 (15:30→21:58)
--- NOTE | 2017-08-19 15:33 | NUR ---
Gps/Plastic Eye Technician- Patient requesting his dexametasone, calllled Dr Poe, order received, ok to start dexametasone 4 mg 1 tab. po today, pt. was informed. Patient claimed taking dexametasone at home for itshing and skin issues. Noted healed skin discolorations on his back , claimed occ. itching .
--- NOTE | 2017-08-19 15:37 | NUR ---
Gps/Green Meat Grader- Patient's cousin in to visit, wants to ask information about patient, encouraged to talk to patient , not allowed to given info. on patient progress and treatment plan.
--- NOTE | 2017-08-19 17:08 | NUR ---
Gps/Radiotelegrapher- Patient refusing to take dexametasone at this time, claimed itching on his face subsided, and wants to make sure it does not interfere with rest of his meds. ,will informed staff when presence of itching, plan to start in am. per pt.
--- NOTE | 2017-08-19 17:50 | NUR ---
Gps/Java Sybase Developer- Per patient will skip his dexametasone for now, , he claimed it raises his blood pressure so he will not take it until he is comfortable to allow them to take b/p again, Dr Poe in saw pt.
[2017-08-19] MEDS: ATORVASTATIN 40 MG TABLET PO SCH (20:23)
[2017-08-19] MEDS: TEMAZEPAM 7.5 MG CAPSULE PO PRN (21:54)
--- NOTE | 2017-08-19 21:55 | NUR ---
GPS: PATIENT C/O INSOMNIA. RESTORIL 7.5MG PO GIVEN.
[2017-08-20] MEDS: PANTOPRAZOLE SODIUM 40 MG TABLET.DR PO SCH (06:07)
[2017-08-20] MEDS: BLOOD SUGAR DIAGNOSTIC 1 EACH STRIP VI SCH ×4 (06:23→20:20)
--- NOTE | 2017-08-20 06:40 | NUR ---
GPS: REMAIN CALM AND COOPERATIVE WITH MEDICATION AND BLOOD SUGAR. SLEPT 6:30 HRS THROUGH THE NIGHT AFTER GIVEN RESTORIL 7.5 MG PO. BLOOD SUGAR 187 MG/DL THIS MORNING.CONTINUE PLAN OF CARE.
[2017-08-20] MEDS: risperiDONE 1 MG TABLET PO SCH ×3 (08:49→17:24)
[2017-08-20] MEDS: glipiZIDE 5 MG TABLET PO SCH ×2 (08:49→17:24)
[2017-08-20] MEDS: PREGABALIN 25 MG CAPSULE PO SCH (08:49)
[2017-08-20] MEDS: DEXAMETHASONE 4 MG TABLET PO SCH (08:49)
[2017-08-20] MEDS: PRIMIDONE 50 MG TABLET PO SCH ×2 (08:50→17:24)
[2017-08-20] MEDS: CLOPIDOGREL 75 MG TABLET PO SCH (08:50)
[2017-08-20] MEDS: METOPROLOL SUCCINATE XL 25 MG TAB.SR.24H PO SCH (08:55)
[2017-08-20] MEDS: NICOTINE 14 MG/24HR PATCH TD SCH (09:00)
[2017-08-20] MEDS: INSULIN REGULAR, HUMAN 300 UNIT/3 ML VIAL SQ PRN ×4 (09:16→20:27)
--- NOTE | 2017-08-20 16:38 | NUR ---
ACCU-CHEK GA=[id number]. PT. HAS JUST FINISHED A GLASS OF JUICE AND FRESH FRUIT. WILL RECHECK BS JUST PRIOR TO DINNER. WILL NOT COVER THIS BS WITH INSULIN.
[2017-08-20] MEDS: ATORVASTATIN 40 MG TABLET PO SCH (20:20)
[2017-08-20] MEDS: TEMAZEPAM 7.5 MG CAPSULE PO PRN (21:25)
--- NOTE | 2017-08-20 21:25 | NUR ---
PATIENT RECEIVED SITTING UP IN BED AWAKE. NO AGGRESSIVE OR COMBATIVE BEHAVIOR NOTED, WILL CONTINUE TO MONITOR. PATIENT ALERT/ORIENTED X3 WITH PERIODS OF FORGETFULNESS. NO AGITATION NOTED WILL CONTINUE TO MONITOR. PATIENT COMPLAINT WITH MEDICATION, COMPLAINT WITH ACCU CHECK 304 MG/DL INSULIN GIVEN PER SLIDING SCALE. PATIENT DENIES PAIN AT THIS TIME, WILL CONTINUE TO MONITOR. BED IN LOWEST POSITION, BED LOCKED, AND BED ALARM ON WHILE IN BED.
[2017-08-20] MEDS: LORAZEPAM 0.5 MG TABLET PO PRN (22:50)
[2017-08-21] MEDS: HYDROCODONE/APAP 5-325MG TABLET PO PRN (01:23)
[2017-08-21] MEDS: PANTOPRAZOLE SODIUM 40 MG TABLET.DR PO SCH (06:09)
[2017-08-21] MEDS: BLOOD SUGAR DIAGNOSTIC 1 EACH STRIP VI SCH ×5 (06:34→20:20)
[2017-08-21] MEDS: INSULIN REGULAR, HUMAN 300 UNIT/3 ML VIAL SQ PRN ×3 (07:30→16:01)
[2017-08-21] MEDS: PREGABALIN 25 MG CAPSULE PO SCH (08:02)
[2017-08-21] MEDS: DEXAMETHASONE 4 MG TABLET PO SCH (08:02)
[2017-08-21] MEDS: METFORMIN HCL 500 MG TABLET PO SCH ×2 (08:02→17:00)
[2017-08-21] MEDS: risperiDONE 1 MG TABLET PO SCH ×3 (08:02→17:00)
[2017-08-21] MEDS: NICOTINE 14 MG/24HR PATCH TD SCH ×2 (08:02→21:12)
[2017-08-21] MEDS: glipiZIDE 5 MG TABLET PO SCH ×2 (08:03→15:53)
[2017-08-21] MEDS: CLOPIDOGREL 75 MG TABLET PO SCH (08:03)
[2017-08-21] MEDS: PRIMIDONE 50 MG TABLET PO SCH ×2 (08:03→16:00)
[2017-08-21] MEDS: METOPROLOL SUCCINATE XL 25 MG TAB.SR.24H PO SCH (08:03)
--- NOTE | 2017-08-21 09:00 | NUR ---
patient refused blood drawn despite of the encouragement and education.
[2017-08-21] MEDS ORDERED: DEXTROSE 50% 50 ML DISP.SYRIN IV PRN (11:00)
[2017-08-21] MEDS ORDERED: diphenhydrAMINE 25 MG/10 ML UDC PO PRN (12:45)
--- NOTE | 2017-08-21 14:56 | NUR ---
PT REFUSING THE VITAL SIGN MD MADE AWARE.
[2017-08-21] MEDS: LORAZEPAM 0.5 MG TABLET PO PRN (18:45)
[2017-08-21] MEDS: ATORVASTATIN 40 MG TABLET PO SCH (20:03)
[2017-08-21] MEDS: INSULIN REGULAR, HUMAN 300 UNITS/3 ML VIAL SQ PRN (20:04)
--- NOTE | 2017-08-21 20:14 | NUR ---
Pt C/O CONSTIPATION, 30ml MOM ADMINISTERED WITH NO EFFECT. WILL CONTINUE TO MONITOR. Pt ENCOURAGED TO INCREASE INTAKE OF WATER.
--- NOTE | 2017-08-21 20:20 | NUR ---
Pt's NICOTINE PATCH FELL OFF EARLIER IN THE DAY. PHARMACY NOTIFIED, WARREN BROUGHT NEW PATCH TO U. PATCH SCANNED AND RE-APPLIED TO (L) SHOULDER. DRYLAND FARMER AWARE.
[2017-08-21] MEDS: diphenhydrAMINE 25 MG CAP PO PRN (20:50)
[2017-08-21] MEDS: TEMAZEPAM 7.5 MG CAPSULE PO PRN (22:02)
[2017-08-22] MEDS: PANTOPRAZOLE SODIUM 40 MG TABLET.DR PO SCH (06:13)
[2017-08-22] MEDS: BLOOD SUGAR DIAGNOSTIC 1 EACH STRIP VI SCH ×4 (07:03→20:03)
[2017-08-22] MEDS: CLOPIDOGREL 75 MG TABLET PO SCH (08:24)
[2017-08-22] MEDS: PRIMIDONE 50 MG TABLET PO SCH ×2 (08:26→17:29)
[2017-08-22 08:29] LABS: BASOPHILS % (AUTO) 0.3 % (0.0-2.0); EOSINOPHILS % (AUTO) 0.4 % (0.0-7.0); HEMATOCRIT 37.8 % (36.7-47.1); HEMOGLOBIN 13.6 g/dL (12.5-16.3); LYMPHOCYTES # (AUTO) 2.7 K/uL (20.0-40.0); LYMPHOCYTES % (AUTO) 24.4 % (20.5-51.5); MEAN CORPUSCULAR HEMOGLOBIN 31.7 uug (23.8-33.4); MEAN CORPUSCULAR HGB CONC 36 g/dL (32.5-36.3); MEAN CORPUSCULAR VOLUME 88.6 fL (73.0-96.2); MONOCYTES # (AUTO) 0.7 K/uL (2.0-10.0); MONOCYTES % (AUTO) 6.7 % (0.0-11.0); NEUTROPHILS # (AUTO) 7.4 K/uL (1.8-8.9); NEUTROPHILS % (AUTO) 68.2 % (38.5-71.5); PLATELET COUNT (AUTO) 130 K/uL (152-348); RED BLOOD CELL COUNT(AUTO) 4.27 MIL/uL (4.06-5.63); WHITE BLOOD COUNT (AUTO) 10.9 K/uL (3.6-10.2)
[2017-08-22] MEDS: METFORMIN HCL 500 MG TABLET PO SCH ×2 (08:34→17:29)
[2017-08-22] MEDS: glipiZIDE 5 MG TABLET PO SCH ×2 (08:34→17:30)
[2017-08-22] MEDS: risperiDONE 1 MG TABLET PO SCH ×3 (08:34→17:30)
[2017-08-22] MEDS: PREGABALIN 25 MG CAPSULE PO SCH (08:47)
[2017-08-22] MEDS: METOPROLOL SUCCINATE XL 25 MG TAB.SR.24H PO SCH (08:56)
[2017-08-22 08:59] LABS: BILIRUBIN,TOTAL 0.4 mg/dL (0.2-1.0); CREATININE 0.9 mg/dL (0.6-1.3); MAGNESIUM 1.8 mg/dL (1.8-2.4); PHOSPHOROUS 3.8 mg/dL (2.5-4.9); POTASSIUM 3.4 mmol/L (3.5-5.1); TOTAL PROTEIN, SERUM 6.1 g/dL (6.4-8.2)
[2017-08-22] MEDS ORDERED: CLONIDINE HCL 0.1 MG TABLET PO PRN (11:30)
[2017-08-22] MEDS ORDERED: POTASSIUM CHLORIDE 20 MEQ TAB.PRT.SR PO ONE (11:45)
[2017-08-22] MEDS: HYDROCODONE/APAP 5-325MG TABLET PO PRN ×2 (14:16→21:19)
[2017-08-22] MEDS: INSULIN REGULAR, HUMAN 300 UNIT/3 ML VIAL SQ PRN (18:10)
[2017-08-22] MEDS: diphenhydrAMINE 25 MG CAP PO PRN (19:01)
--- NOTE | 2017-08-22 20:00 | NUR ---
Pt REFUSED VS AND HS LIPITOR. Pt EDUCATED ON RISKS AND BENEFITS.
[2017-08-22] MEDS: ATORVASTATIN 40 MG TABLET PO SCH (20:02)
[2017-08-22] MEDS: LORAZEPAM 0.5 MG TABLET PO PRN (20:03)
--- NOTE | 2017-08-22 21:25 | NUR ---
Pt C/O INSOMNIA AND REQUESTED SLEEPING PILL. RESTORIL 7.5mg PULLED FROM THE PYXIS. WHEN THE MEDICATION WAS READY TO BE SCANNED, Pt CAME TO NURSE'S STATION AND TOLD RN THAT HE WANTED A PAIN PILL INSTEAD, C/O 01/28 (R) KNEE PAIN. RESTORIL WAS HELD AT THAT TIME AND NORCO 5/325 ADMINISTERED.
[2017-08-23] MEDS: TEMAZEPAM 7.5 MG CAPSULE PO PRN ×2 (00:13→22:13)
[2017-08-23] MEDS: BLOOD SUGAR DIAGNOSTIC 1 EACH STRIP VI SCH ×4 (06:41→20:02)
[2017-08-23] MEDS: PANTOPRAZOLE SODIUM 40 MG TABLET.DR PO SCH (06:41)
--- NOTE | 2017-08-23 06:53 | NUR ---
Pt REFUSED AM PROTONIX, STATED, "MY STOMACH IS FINE, I DON'T NEED IT". RISKS AND BENEFITS EXPLAINED, Pt VERBALIZED UNDERSTANDING. AM BG 80, SLEPT 7 HOURS.
[2017-08-23] MEDS: NICOTINE 14 MG/24HR PATCH TD SCH (08:41)
[2017-08-23] MEDS: PRIMIDONE 50 MG TABLET PO SCH ×2 (08:41→17:19)
[2017-08-23] MEDS: CLOPIDOGREL 75 MG TABLET PO SCH (08:41)
[2017-08-23] MEDS: METOPROLOL SUCCINATE XL 25 MG TAB.SR.24H PO SCH (08:41)
[2017-08-23] MEDS: METFORMIN HCL 500 MG TABLET PO SCH ×2 (08:41→17:19)
[2017-08-23] MEDS: glipiZIDE 5 MG TABLET PO SCH ×2 (08:41→17:19)
[2017-08-23] MEDS: risperiDONE 1 MG TABLET PO SCH (08:42)
[2017-08-23] MEDS: PREGABALIN 25 MG CAPSULE PO SCH (08:42)
[2017-08-23] MEDS: HYDROCODONE/APAP 5-325MG TABLET PO PRN ×2 (13:59→19:47)
--- NOTE | 2017-08-23 17:00 | NUR ---
Gps/Cotton Expert- Stayed in his bed most of the time, encouraged participation in his group therapy, adequate relief from pain on his knees,lower back,neck area . Has min.interactions with his roommate .Refused routine am. rudy , claimed he does not need it anymore.
[2017-08-23] MEDS: LORAZEPAM 0.5 MG TABLET PO PRN (17:41)
[2017-08-23] MEDS: diphenhydrAMINE 25 MG CAP PO PRN (19:46)
[2017-08-23] MEDS: INSULIN REGULAR, HUMAN 300 UNITS/3 ML VIAL SQ PRN (20:03)
[2017-08-23] MEDS: ATORVASTATIN 40 MG TABLET PO SCH (20:07)
[2017-08-23] MEDS ORDERED: risperiDONE 2 MG TABLET PO SCH (21:00)
[2017-08-24] MEDS: PANTOPRAZOLE SODIUM 40 MG TABLET.DR PO SCH ×2 (06:35→06:41)
[2017-08-24] MEDS: BLOOD SUGAR DIAGNOSTIC 1 EACH STRIP VI SCH ×2 (06:41→11:35)
[2017-08-24] MEDS: PREGABALIN 25 MG CAPSULE PO SCH ×2 (08:11→08:26)
[2017-08-24] MEDS: CLOPIDOGREL 75 MG TABLET PO SCH (08:11)
[2017-08-24] MEDS: glipiZIDE 5 MG TABLET PO SCH (08:11)
[2017-08-24] MEDS: METFORMIN HCL 500 MG TABLET PO SCH (08:11)
[2017-08-24] MEDS: METOPROLOL SUCCINATE XL 25 MG TAB.SR.24H PO SCH ×2 (08:12→11:28)
[2017-08-24] MEDS: NICOTINE 14 MG/24HR PATCH TD SCH (08:12)
[2017-08-24] MEDS: PRIMIDONE 50 MG TABLET PO SCH (08:13)
[2017-08-24] MEDS ORDERED: risperiDONE 1 MG TABLET PO SCH (09:00)
[2017-08-24] MEDS: diphenhydrAMINE 25 MG CAP PO PRN (09:13)
--- NOTE | 2017-08-24 10:27 | NUR ---
Discharge Note: Patient will be discharged back home today with his daughter [[address] [facility]. [address] [address]; [phone]] via private transportation at 1pm. Spoke with patient's daughter, Yuliet ([phone]) who is willing to provide transportation and is aware and agreeable with discharge plans. Patient is aware and agreeable with discharge plans. Patient will continue to follow-up with his Primary Care Physician, Dr. Sae Mc [[address] [place] [address]; [phone]]. Patient will also continue to follow-up with his outpatient Psychiatrist, Dr. Veronica Butts [[address] [place] [address]; ]. Spoke with Amy at [facility] and faxed order (tel ; fax [phone]]. Patient will continue to be followed by his APS Worker, Lisa Nguyen ([phone]) who reports she will attempt to connect patient to In-Home Supportive Services. Patient was provided with a brief substance abuse intervention and referred to [facility] , and [facility] . Patient was encouraged to go to [facility] at 9am for intake on weekdays, if needed. Patient was given referrals for Whole Person Care-Intensive Service Recipient Program through Department of Mental Health: Radha Webb ([phone]). Addendum: 08/24/17 at 1216 by ALEC THOMASON Spoke with Amy at [facility] ([phone]) who accepted patient for medication management with a start of care on 08/25/17.
[2017-08-24 11:28] VITALS: BP 164/94
--- NOTE | 2017-08-24 13:30 | NUR ---
DISCHARGE NOTE: PT IS READY TO BE D/C. PT IS BEING PICKED UP BY HIS DAUGHTER. EDUCATION IS GIVEN TO THE PT. PT SIGN AND VOICED HIS UNDERSTANDING OF THE D/C PLAN OF CARE AND EDUCATION GIVEN. PT IS CALM AND COOPERATIVE, WHEELCHAIR USED TO WHEEL THE PT TO PRIVATE CAR. BELONGINGS CLAUDE GIVEN TO THE PT. ALL SAFETY NEEDS ARE MET.
== END 2017-08-24 13:25 | disposition home health service (06) | DRG 885 ==
LOC: ER 13:01 → GPS 18:33
PROVIDERS: ADMIT Psychiatry & Neurology Psychiatry; ATTEND Nurse Practitioner Acute Care
DX: F23 Brief psychotic disorder (principal); E11.65 Type 2 diabetes mellitus with hyperglycemia; D69.6 Thrombocytopenia, unspecified; E78.5 Hyperlipidemia, unspecified; I25.10 Atherosclerotic heart disease of native coronary artery without angina pectoris; Z95.5 Presence of coronary angioplasty implant and graft; Z87.891 Personal history of nicotine dependence; I25.2 Old myocardial infarction; F12.90 Cannabis use, unspecified, uncomplicated; Z79.02 Long term (current) use of antithrombotics/antiplatelets; Z79.84 Long term (current) use of oral hypoglycemic drugs; Z79.899 Other long term (current) drug therapy; E87.6 Hypokalemia; Z86.59 Personal history of other mental and behavioral disorders; E80.6 Other disorders of bilirubin metabolism; M47.812 Spondylosis without myelopathy or radiculopathy, cervical region; I08.3 Combined rheumatic disorders of mitral, aortic and tricuspid valves; I45.10 Unspecified right bundle-branch block; D72.829 Elevated white blood cell count, unspecified; I10 Essential (primary) hypertension; T38.0X5A Adverse effect of glucocorticoids and synthetic analogues, initial encounter; Y92.230 Patient room in hospital as the place of occurrence of the external cause
CPT/HCPCS: 36415; 70030-TC; 70450; 71045; 80307; 83605; 83735; 84100; 84443; 85025; 85730; 87040; 87086; 93005; A4663; G0480; G0480-TC; J1815; J3535; J8540; Q0163

== ENCOUNTER 2019-05-17 14:32 | Inpatient (IN) | payer MEDICARE, OTHER ==
[~2019-05-17] VITALS: Ht 177.8 cm; Wt 86.2 kg
[~2019-05-17 14:32] MED LIST changes: +ACET1TAB23 PO; -ASPI-869 PO; +ATOR40TA PO; +BLOO-170 IN; +BUDE10.2 IH; +CEFU500T66 PO; +CHLO1LIQ MC; +CYCL30DR OP; +DEXA4TAB PO; +FLUC150T5 PO; +FLUT16SP NS; +GLIP5TAB13 PO; +HYDR-4354 PO; +MELO-107 PO; -METF-494 PO; +METO-356 PO; -METO50TA16 PO; +NAPR500T6 PO; +OMEP40CA13 PO; +PREG75CA PO; +PRIM50TA PO; +PROM118S4 PO; +ROSU10TA2 PO; +SITA100T PO; +SITA1TAB2 PO; -SITA25TA PO; +SUMA100T16 PO; +VARE1TAB21 PO; -[UNRECOGNIZED DRUG - CODE]
--- NOTE | 2019-05-17 14:32 | NUR ---
On arrival, this patient and his 2 family members immediately expressed desire to be transferred out to [facility] Patient is AOx4, calm & breathing easily, denies chest pains or any discomfort@this time, skin warm & dry.
--- NOTE | 2019-05-17 14:44 | NUR ---
is at bedside doing the MSE, pending orders@this time.
--- NOTE | 2019-05-17 14:47 | NUR ---
Harjit pringle in ED - 05/17/19 at 1450 by IHSAN Patient's family members want to be transferred to [facility].
--- NOTE | 2019-05-17 14:47 | NUR ---
Harjit pino in ED - 05/17/19 at 1617 by IHSAN Patient's family want this patient transferred to [facility].
--- NOTE | 2019-05-17 14:58 | NUR ---
500ml infused (started by RA 83), patient tolerated well.
[2019-05-17] MEDS ORDERED: IV NORMAL SALINE 500 ML BAG IV ONE (15:00)
[2019-05-17] MEDS ORDERED: ZOLP10TA2 PO (15:09)
[2019-05-17] MEDS ORDERED: METO25TA6 PO (15:09)
[2019-05-17] MEDS ORDERED: METH-406 PO (15:09)
[2019-05-17] MEDS ORDERED: LIDO1ADH44 TP (15:09)
[2019-05-17] MEDS ORDERED: INSU100V39 SQ (15:09)
[2019-05-17] MEDS ORDERED: ISOS30TA6 PO (15:09)
[2019-05-17] MEDS ORDERED: DOCU-141 PO (15:09)
[2019-05-17] MEDS ORDERED: ASCO500P18 PO (15:09)
[2019-05-17] MEDS ORDERED: ERGO2000 PO (15:09)
[2019-05-17] MEDS ORDERED: MAGN400C PO (15:09)
[2019-05-17] MEDS ORDERED: NATE120T PO (15:09)
[2019-05-17] MEDS ORDERED: ROSU20TA2 PO (15:09)
[2019-05-17] MEDS ORDERED: AMIO400T5 PO (15:09)
[2019-05-17] MEDS ORDERED: AMIO200T4 PO (15:09)
[2019-05-17] MEDS ORDERED: EMPA10TA PO (15:09)
[2019-05-17] MEDS ORDERED: ALPR1TAB7 PO (15:09)
[2019-05-17] MEDS ORDERED: FERR325T28 PO (15:09)
[2019-05-17] MEDS ORDERED: ASPI-612 PO (15:09)
[2019-05-17] MEDS ORDERED: PREG75CA PO (15:09)
[2019-05-17] MEDS ORDERED: INSU100V7 SQ (15:09)
[2019-05-17] MEDS ORDERED: PANT40TA2 PO (15:09)
[2019-05-17] MEDS ORDERED: TRAM50TA2 PO (15:09)
[2019-05-17 15:31] LABS: BASOPHILS # (AUTO) 0.1 K/uL (0.0-8.0); BASOPHILS % (AUTO) 1.1 % (0.0-2.0); EOSINOPHILS # (AUTO) 0.2 K/uL (0.0-0.7); EOSINOPHILS % (AUTO) 1.9 % (0.0-7.0); HEMOGLOBIN 12.9 g/dL (12.5-16.3); LYMPHOCYTES # (AUTO) 1.3 K/uL (20.0-40.0); LYMPHOCYTES % (AUTO) 14.1 % (20.5-51.5); MEAN CORPUSCULAR HEMOGLOBIN 30.3 uug (23.8-33.4); MEAN CORPUSCULAR HGB CONC 33 g/dL (32.5-36.3); MEAN CORPUSCULAR VOLUME 91.9 fL (73.0-96.2); MONOCYTES # (AUTO) 0.7 K/uL (2.0-10.0); MONOCYTES % (AUTO) 7.4 % (0.0-11.0); NEUTROPHILS # (AUTO) 6.8 K/uL (1.8-8.9); NEUTROPHILS % (AUTO) 75.5 % (38.5-71.5); PLATELET COUNT (AUTO) 204 K/uL (152-348); RED BLOOD CELL COUNT(AUTO) 4.24 MIL/uL (4.06-5.63); WHITE BLOOD COUNT (AUTO) 9.1 K/uL (3.6-10.2)
[2019-05-17 15:41] LABS: CREATININE 1.3 mg/dL (0.6-1.3); POTASSIUM 4.7 mmol/L (3.5-5.1)
[2019-05-17 15:46] LABS: BILIRUBIN,DIRECT 0.1 mg/dL (0.0-0.2); BILIRUBIN,TOTAL 0.4 mg/dL (0.2-1.0); TOTAL PROTEIN, SERUM 6.8 g/dL (6.4-8.2)
--- NOTE | 2019-05-17 16:17 | NUR ---
Patient is resting comfortably on gurney, NAD, pending transfer information from [facility] transfer Center@this time. PATIENT IS PAIN FREE@the moment.
--- NOTE | 2019-05-17 17:41 | NUR ---
Hot dinner tray (cardiac diet) is at bedside.
[2019-05-17] MEDS ORDERED: Z GUARD REMEDY PASTE 57 GM TUBE TOP PRN (17:45)
[2019-05-17] MEDS ORDERED: ONDANSETRON 4 MG/2 ML VIAL IV PRN (17:45)
[2019-05-17] MEDS ORDERED: MAGNESIUM HYDROXIDE 30 ML LIQUID UDC PO PRN (17:45)
[2019-05-17] MEDS ORDERED: HYDROCODONE/APAP 5-325MG TABLET PO PRN (17:45)
[2019-05-17] MEDS ORDERED: ACETAMINOPHEN 325 MG TABLET PO PRN (17:45)
[2019-05-17 18:30] VITALS: BP 94/57
[2019-05-17 19:00] VITALS: BP 89/56
[2019-05-17] MEDS ORDERED: MORPHINE SULFATE 2 MG/1 ML DISP.SYRIN SQ PRN (19:15)
[2019-05-17] MEDS: IV NS 1000 ML 1,000 ML IV PRN (19:50)
--- NOTE | 2019-05-17 19:56 | NUR ---
patient recieved on bed ,ivf started, no signs of distress, with call light within reach. bp 98/56. normal sinus rhtyhm. Dr Clark paged as the home medications are not reconciled and the patient is diabetic, is currently doing the reconcilaitions of medications
[2019-05-17 20:00] VITALS: BP 98/56
[2019-05-17] MEDS ORDERED: DEXTROSE 50% 50 ML DISP.SYRIN IV PRN (20:00)
[2019-05-17] MEDS ORDERED: DOCUSATE SODIUM 100 MG CAPSULE PO PRN (20:00)
[2019-05-17] MEDS ORDERED: Medication Not On Formulary EA (Ergocalciferol (Vitamin D2) (Vitamin D2 TAB) 50,000 UNIT PO SCH (20:00)
[2019-05-17 20:02] VITALS: BP 94/53
--- NOTE | 2019-05-17 20:30 | NUR ---
[facility] TRANSFER UNIT CALLED AND COMMUNICATED TO UNDERSIGNED THAT FINANCIAL CLEARANCE WILL BE TAKEN CARED OF ON SUNDAY,THIS IS IN RELATION TO FAMILY WISHING TO TRANSFER PT. PRIMARY NURSE(ALEJANDRO)MADE AWARE OF ABOVE.PT. NOTIFIED REGARDING INTENT TO TRANSFER.
[2019-05-17] MEDS: BLOOD SUGAR DIAGNOSTIC 1 EACH STRIP VI SCH (20:31)
[2019-05-17] MEDS: INSULIN REGULAR, HUMAN 300 UNIT/3 ML VIAL SQ PRN (21:21)
[2019-05-17 21:24] VITALS: BP 100/59
--- NOTE | 2019-05-17 21:50 | NUR ---
Dr Clark paged about the lidocaine patch and verified and reordered Addendum: 05/17/19 at 2254 by [address]O AD[address]ON RN [address] AGUILLON ORDERED TO CONTINUE WHAT THE PATIENT TAKING IN AT HOME SAME DOSE AND SAME LOCATION. 3 LIDODERM PATCH APPLIED ONE TO THE LOWER BACK THE TWO TO THE BILATERAL UPPER BACK.
[2019-05-17 22:03] VITALS: BP 107/61
[2019-05-17] MEDS: LIDOCAINE 5% PATCH TD SCH (22:40)
--- NOTE | 2019-05-17 22:54 | NUR ---
WITH COMPLAITS OF ON AND OFF CHEST DISCOMFORT, PATIENT PLACED ON O2 AT 2 L FOR THE CHEST PAIN. WILL INFORM DR AGUILLON.
[2019-05-18] VITALS: BP 103/61
--- NOTE | 2019-05-18 00:10 | NUR ---
DR Clark paged as the patient is placed in oxygen 2 liters nasal cannula for the intermiitent chest pain. and request for painm medication. with orders and carried out
--- NOTE | 2019-05-18 00:23 | NUR ---
ekg currently being done Addendum: 05/18/19 at 0307 by ALEJANDRO ADDISON RN ekg done carey falcon. trop 0.017.
[2019-05-18] MEDS: ZOLPIDEM 5 MG TABLET PO PRN (00:34)
--- NOTE | 2019-05-18 03:07 | NUR ---
awake and with complaints of chest disconfort,back pain is relieved, refused morphine as patient claiims he get sick with morphine. the pain comes and goes,
[2019-05-18] MEDS ORDERED: NITROGLYCERIN 0.4 MG/TAB BOTTLE SL STA (03:22)
--- NOTE | 2019-05-18 03:27 | NUR ---
Dr Chacon called and informed that the patient is complaints of chest pain which intermittent 10/28. ith orders of ekg stat and troponin stat, patient requested for Tylenol dose for chest pain and refused morphine. and informed that the patient claims he do not have allergy to tylenol Dr Chacon ordered tylenol dose .pharmacy informed and requested that if the patient has no allergy to tylenol then the list of tylenol as allergy needs to be corrected. will reconfirm with the patient.
[2019-05-18] MEDS ORDERED: ACETAMINOPHEN 325 MG TABLET PO STA (03:47)
[2019-05-18 03:50] LABS: BASOPHILS # (AUTO) 0.1 K/uL (0.0-8.0); BASOPHILS % (AUTO) 1.1 % (0.0-2.0); EOSINOPHILS # (AUTO) 0.2 K/uL (0.0-0.7); EOSINOPHILS % (AUTO) 2.9 % (0.0-7.0); HEMATOCRIT 34.4 % (36.7-47.1); HEMOGLOBIN 11.4 g/dL (12.5-16.3); LYMPHOCYTES # (AUTO) 1.6 K/uL (20.0-40.0); LYMPHOCYTES % (AUTO) 24.8 % (20.5-51.5); MEAN CORPUSCULAR HEMOGLOBIN 30.3 uug (23.8-33.4); MEAN CORPUSCULAR HGB CONC 33 g/dL (32.5-36.3); MEAN CORPUSCULAR VOLUME 91.3 fL (73.0-96.2); MONOCYTES # (AUTO) 0.5 K/uL (2.0-10.0); MONOCYTES % (AUTO) 7.8 % (0.0-11.0); NEUTROPHILS # (AUTO) 4.1 K/uL (1.8-8.9); NEUTROPHILS % (AUTO) 63.4 % (38.5-71.5); PLATELET COUNT (AUTO) 159 K/uL (152-348); RED BLOOD CELL COUNT(AUTO) 3.76 MIL/uL (4.06-5.63); WHITE BLOOD COUNT (AUTO) 6.4 K/uL (3.6-10.2)
--- NOTE | 2019-05-18 03:56 | NUR ---
tylenol dose ordered, nitrroglycerine dose given sl, ekg result forwarded to Dr Chacon.
[2019-05-18 04:02] LABS: CREATININE 1.2 mg/dL (0.6-1.3); PHOSPHOROUS 4.6 mg/dL (2.5-4.9); POTASSIUM 4.2 mmol/L (3.5-5.1)
[2019-05-18 04:21] VITALS: BP 107/59
--- NOTE | 2019-05-18 04:56 | NUR ---
patient is asleep. with the same ivf on.troponin the same , no change,
[2019-05-18] MEDS: IV NS 1000 ML 1,000 ML IV PRN (05:03)
[2019-05-18] MEDS: BLOOD SUGAR DIAGNOSTIC 1 EACH STRIP VI SCH ×4 (06:49→20:13)
--- NOTE | 2019-05-18 07:07 | NUR ---
asleep with no further complaints
[2019-05-18] MEDS: NATEGLINIDE 60 MG TABLET PO SCH ×3 (07:44→16:30)
[2019-05-18] MEDS: PANTOPRAZOLE SODIUM 40 MG TABLET.DR PO SCH (07:44)
--- NOTE | 2019-05-18 07:47 | NUR ---
associate software engineer in to see patient ,with no further complaints m,rik.
[2019-05-18 08:24] VITALS: BP 115/70
[2019-05-18] MEDS ORDERED: Medication Not On Formulary EA (Amiodarone Hcl (Cordarone) 400 MG) PO SCH (09:00)
[2019-05-18] MEDS ORDERED: LIDOCAINE 5% PATCH TD SCH (09:00)
[2019-05-18] MEDS ORDERED: Medication Not On Formulary EA (Nateglinide (Starlix) 120 MG) PO SCH (09:00)
[2019-05-18] MEDS ORDERED: Medication Not On Formulary EA (Rosuvastatin Calcium (Crestor) 20 MG) PO SCH (09:00)
[2019-05-18] MEDS ORDERED: Medication Not On Formulary EA (Empagliflozin (Jardiance) 10 MG) PO SCH (09:00)
[2019-05-18] MEDS: INSULIN GLARGINE,HUM 300 UNITS/3 ML CARTRIDGE SQ SCH ×3 (09:00→16:32)
[2019-05-18] MEDS ORDERED: AMIODARONE HCL 200 MG TABLET PO SCH (09:00)
[2019-05-18] MEDS: MAGNESIUM OXIDE 400 MG TABLET PO SCH (10:33)
[2019-05-18] MEDS: ASCORBIC ACID 500 MG TABLET PO SCH ×2 (10:33→16:30)
[2019-05-18] MEDS: FERROUS SULFATE 325 MG TABEC PO SCH (10:33)
[2019-05-18] MEDS: LIDOCAINE 5% PATCH TD SCH (10:34)
[2019-05-18] MEDS: ASPIRIN 325 MG TABLET PO SCH (10:38)
[2019-05-18] MEDS: INSULIN REGULAR, HUMAN 300 UNIT/3 ML VIAL SQ PRN (11:32)
--- NOTE | 2019-05-18 11:45 | NUR ---
alert, oriented, and very appropriate. Care taken over at 10am, bs early this am, 133, lantus ordered 10units, refused. " it will bring my blood sugar down further". On Starlix 120mg po bid.. Appetite for regular diet, 100%, for now, ivf discontinued after discussing with Epic group, dr Clark. Will resume when blood pressure dropped
[2019-05-18 11:54] VITALS: BP 111/72
--- NOTE | 2019-05-18 13:27 | NUR ---
patient knowledgeable about all meds he has been taking at home, since discharged from [facility] on 05/02/2019. Denied AMIODARONE, " when i was discharged from [facility], stopped taking that medication, per my conductor sleeping car at [facility]" Has been taking Jardian at home, daughter unable to bring it in, ( non-formulary) because she is sick today. " preferrably if my blood sugar can be controlled by reg insular" Vit D 50,000 units, taken very WED per patient's report. All report to Kasey, pharmacist today, for clarification
[2019-05-18 15:33] VITALS: BP 125/75
--- NOTE | 2019-05-18 16:14 | NUR ---
blood sugar at this time, 1615, 127, asked to hold LANTUS " I dont want my blood sugar dropped in the morning" For StARLIX , 120mg po, insists to take only 60mg, instead, requests honor. Patient is very alert, oriented, and vss, bp 125/65, with HR 84.
--- NOTE | 2019-05-18 17:39 | NUR ---
seen by registered pharmacy technician, dr Greco, another Trop drawn this evening, < 0.017, 2DEcho read, NSR, with EF 60-65%. Denied back pain, ( got 3 patches Lidoderm this am) on the back.. Made aware if back pain occurs, he always can have MSO4 ivp ready for him.
--- NOTE | 2019-05-18 20:00 | NUR ---
Received patient A/O x 3. C/O of generalized twitches which can be painful. Patient is ambulatory. In room air. TELE SR at 96. Hep Lock on the left AC, patent and intact. Safety initiated. Call light within reach. Will closely monitor.
[2019-05-18 20:18] VITALS: BP 134/90
[2019-05-18] MEDS ORDERED: ACETAMINOPHEN 325 MG TABLET PO PRN (20:30)
[2019-05-18] MEDS ORDERED: ALPRAZOLAM 0.5 MG TABLET PO PRN (20:30)
--- NOTE | 2019-05-18 20:32 | NUR ---
Patient c/o generalized pain. Would like tylenol. Fredy C PROGRAMMER orders given. Will closely monitor. Vital signs stable.
[2019-05-18] MEDS ORDERED: ATORVASTATIN 40 MG TABLET PO SCH (21:00)
[2019-05-19] MEDS: ZOLPIDEM 5 MG TABLET PO PRN (00:14)
[2019-05-19 00:54] VITALS: BP 121/78
[2019-05-19 05:38] VITALS: BP 121/68
--- NOTE | 2019-05-19 06:10 | NUR ---
Patient slept intermediately t/o shift. Denies chest pain. Remains in room, air. TELE SR 87. Good urine output. Vital signs stable. Safety and comfort measures maintained t/o shift. All meds given as ordered. All needs met.
[2019-05-19 06:38] LABS: BASOPHILS # (AUTO) 0.1 K/uL (0.0-8.0); BASOPHILS % (AUTO) 1.1 % (0.0-2.0); EOSINOPHILS # (AUTO) 0.3 K/uL (0.0-0.7); EOSINOPHILS % (AUTO) 4.7 % (0.0-7.0); HEMATOCRIT 36.7 % (36.7-47.1); HEMOGLOBIN 12.2 g/dL (12.5-16.3); LYMPHOCYTES # (AUTO) 1.5 K/uL (20.0-40.0); LYMPHOCYTES % (AUTO) 25.4 % (20.5-51.5); MEAN CORPUSCULAR HEMOGLOBIN 30.2 uug (23.8-33.4); MEAN CORPUSCULAR HGB CONC 33 g/dL (32.5-36.3); MEAN CORPUSCULAR VOLUME 90.8 fL (73.0-96.2); MONOCYTES # (AUTO) 0.5 K/uL (2.0-10.0); MONOCYTES % (AUTO) 9.3 % (0.0-11.0); NEUTROPHILS # (AUTO) 3.5 K/uL (1.8-8.9); NEUTROPHILS % (AUTO) 59.5 % (38.5-71.5); PLATELET COUNT (AUTO) 153 K/uL (152-348); RED BLOOD CELL COUNT(AUTO) 4.05 MIL/uL (4.06-5.63); WHITE BLOOD COUNT (AUTO) 5.9 K/uL (3.6-10.2)
[2019-05-19] MEDS: NATEGLINIDE 60 MG TABLET PO SCH ×2 (06:41→11:52)
[2019-05-19] MEDS: PANTOPRAZOLE SODIUM 40 MG TABLET.DR PO SCH (06:41)
[2019-05-19] MEDS: BLOOD SUGAR DIAGNOSTIC 1 EACH STRIP VI SCH ×2 (06:45→11:52)
--- NOTE | 2019-05-19 06:50 | NUR ---
New orders from Dr. Seng Chacon, transfer/downgrade to TELE. In stable condition. Will continue to monitor
[2019-05-19 07:01] LABS: MAGNESIUM 1.9 mg/dL (1.8-2.4); PHOSPHOROUS 3.3 mg/dL (2.5-4.9); POTASSIUM 3.8 mmol/L (3.5-5.1)
--- NOTE | 2019-05-19 07:25 | NUR ---
RECEIVED PATIENT SLEEPING IN BED. NO ACUTE DISTRESS NOTED. BED IN LOWEST POSITION, SIDE RAILS UP X2, CALL LIGHT WITHIN REACH, WILL CONTINUE TO MONITOR.
[2019-05-19] MEDS: MAGNESIUM OXIDE 400 MG TABLET PO SCH (08:26)
[2019-05-19] MEDS: ASCORBIC ACID 500 MG TABLET PO SCH (08:26)
[2019-05-19] MEDS: FERROUS SULFATE 325 MG TABEC PO SCH (08:26)
[2019-05-19] MEDS: ASPIRIN 325 MG TABLET PO SCH (08:26)
[2019-05-19] MEDS: LIDOCAINE 5% PATCH TD SCH (08:29)
[2019-05-19] MEDS: INSULIN REGULAR, HUMAN 300 UNIT/3 ML VIAL SQ PRN (08:29)
[2019-05-19] MEDS: INSULIN GLARGINE,HUM 300 UNITS/3 ML CARTRIDGE SQ SCH (09:00)
[2019-05-19 11:15] VITALS: BP 110/70
[2019-05-19] MEDS ORDERED: METO25TA6 PO (12:27)
--- NOTE | 2019-05-19 14:30 | NUR ---
Patient discharged to home. Reviewed D/C instructions with patient and daughter. Patient and daughter verbalize understanding. D/Cd IV and identification printing machine setter, without any complications. Patient taken down via wheelchair by staff.
[2019-05-21] MEDS ORDERED: ERGOCALCIFEROL 50,000 UNIT CAPSULE PO SCH (09:00)
== END 2019-05-19 14:30 | disposition home or self-care (01) | DRG 312 ==
LOC: ER 14:36 → TELE3 17:56 → TELE-TD3 20:40 → TELE3 05-19 06:49
PROVIDERS: ADMIT Student in an Organized Health Care Education/Training Program; ATTEND Student in an Organized Health Care Education/Training Program
DX: I95.2 Hypotension due to drugs (principal); N17.0 Acute kidney failure with tubular necrosis; I31.3 Pericardial effusion (noninflammatory); I25.3 Aneurysm of heart; T42.6X5A Adverse effect of other antiepileptic and sedative-hypnotic drugs, initial encounter; Y92.039 Unspecified place in apartment as the place of occurrence of the external cause; I25.10 Atherosclerotic heart disease of native coronary artery without angina pectoris; Z95.1 Presence of aortocoronary bypass graft; Z95.5 Presence of coronary angioplasty implant and graft; E11.9 Type 2 diabetes mellitus without complications; E78.5 Hyperlipidemia, unspecified; F20.9 Schizophrenia, unspecified; Z82.49 Family history of ischemic heart disease and other diseases of the circulatory system; F17.211 Nicotine dependence, cigarettes, in remission; R07.89 Other chest pain; E86.0 Dehydration
CPT/HCPCS: 36415; 70030-TC; 71045; 83605; 83735; 84100; 85025; 85730; 87040; 93005; 93307; A4663; G0378; J1815; J7030; J7040

== ENCOUNTER 2023-02-18 10:09 | Emergency (ER) | payer MEDICARE, OTHER ==
[~2023-02-18] VITALS: Ht 172.7 cm; Wt 72.6 kg
[~2023-02-18 10:09] MED LIST changes: -ACET1TAB23 PO; +ALPR1TAB7 PO; +AMIO200T5 PO; +AMIO400T5 PO; +ASCO500P18 PO; +ASPI-612 PO; -ATOR40TA PO; -BLOO-170 IN; -BUDE10.2 IH; -CEFU500T66 PO; -CHLO1LIQ MC; -CLOP75TA15 PO; -CYCL30DR OP; -DEXA4TAB PO; +DOCU-141 PO; +EMPA10TA PO; +ERGO2000 PO; +FERR325T28 PO; -FLUC150T5 PO; -FLUT16SP NS; -GLIP5TAB13 PO; -HYDR-4354 PO; -IBUP-1955 PO; +INSU100V39 SQ; +INSU100V7 SQ; +ISOS30TA86 PO; +LIDO1ADH44 TP; +MAGN400C PO; -MELO-107 PO; +METH-406 PO; -METO-356 PO; +METO25TA6 PO; -NAPR500T6 PO; +NATE120T PO; -OMEP40CA13 PO; +PANT40TA2 PO; -PRIM50TA PO; -PROM118S4 PO; -ROSU10TA2 PO; +ROSU20TA2 PO; -SITA100T PO; -SITA1TAB2 PO; -SUMA100T16 PO; +TRAM50TA2 PO; -VARE1TAB21 PO; +ZOLP10TA2 PO
[2023-02-18] MEDS ORDERED: ONDANSETRON 4 MG/2 ML VIAL ONE ×2 (11:39→13:15)
[2023-02-18] MEDS ORDERED: HYDROMORPHONE 1 MG/1 ML DISP.SYRIN ONE (11:39)
[2023-02-18 11:45] LABS: BASOPHILS % (AUTO) 0.5 % (0.0-2.0); EOSINOPHILS # (AUTO) 0.1 K/uL (0.0-0.7); EOSINOPHILS % (AUTO) 0.7 % (0.0-7.0); HEMATOCRIT 42.2 % (36.7-47.1); HEMOGLOBIN 14.9 g/dL (12.5-16.3); MEAN CORPUSCULAR HEMOGLOBIN 31.3 uug (23.8-33.4); MEAN CORPUSCULAR HGB CONC 35 g/dL (32.5-36.3); MEAN CORPUSCULAR VOLUME 88.6 fL (73.0-96.2); MONOCYTES # (AUTO) 0.6 K/uL (0.1-1.30); MONOCYTES % (AUTO) 6.4 % (0.0-11.0); NEUTROPHILS % (AUTO) 80.4 % (38.5-71.5); PLATELET COUNT (AUTO) 128 K/uL (152-348); RED BLOOD CELL COUNT(AUTO) 4.77 MIL/uL (4.06-5.63); RED CELL DISTRIBUTION WIDTH 13.1 % (12.1-16.2); WHITE BLOOD COUNT (AUTO) 8.7 K/uL (3.6-10.2)
[2023-02-18] MEDS ORDERED: ONDANSETRON 4 MG/2 ML VIAL IV ONE ×2 (11:45→13:15)
[2023-02-18] MEDS ORDERED: HYDROMORPHONE 1 MG/1 ML DISP.SYRIN IV ONE (11:45)
[2023-02-18 12:58] LABS: DIFFERENTIAL COMMENT 1
[2023-02-18] MEDS ORDERED: MAG HYDROX/AL HYDROX/SIMETH 30 ML LIQUID UDC PO ONE (13:15)
[2023-02-18] MEDS ORDERED: MORPHINE SULFATE 4 MG/1 ML DISP.SYRIN IV ONE (13:15)
[2023-02-18] MEDS ORDERED: MAG HYDROX/AL HYDROX/SIMETH 30 ML LIQUID UDC ONE (13:15)
[2023-02-18] MEDS ORDERED: MORPHINE SULFATE 4 MG/1 ML DISP.SYRIN ONE (13:16)
[2023-02-18] MEDS ORDERED: HYDR-3980 PO (14:17)
[2023-02-18] MEDS ORDERED: DEXA4TAB PO (14:17)
[2023-02-18 14:30] VITALS: BP 148/90; O2SAT 96
[2023-02-18] MEDS ORDERED: HYDR4TAB4 PO (15:43)
[2023-02-18 17:04] LABS: CALCIUM 9.3 mg/dL (8.5-10.1); CARBON DIOXIDE 25 mmol/L (21-32); CHLORIDE 102 mmol/L (98-107); CREATININE 1.2 mg/dL (0.6-1.3); GLUCOSE 228 mg/dL (74-106); POTASSIUM 4.3 mmol/L (3.5-5.1); SODIUM SERUM 137 mmol/L (136-145); UREA NITROGEN, BLOOD 17 mg/dL (7-18)
[2023-02-18 17:13] LABS: ALANINE AMINOTRANSFERASE 23 U/L (16-63); ALBUMIN 4.2 g/dL (3.4-5.0); ALKALINE PHOSPHATASE 59 U/L (50-136); ASPARTATE AMINOTRANSFERASE 10 U/L (15-37); BILIRUBIN,DIRECT 0.1 mg/dL (0.0-0.2); BILIRUBIN,TOTAL 0.5 mg/dL (0.2-1.0); LIPASE 80 U/L (73-393); TOTAL PROTEIN, SERUM 7.2 g/dL (6.4-8.2)
== END 2023-02-18 14:31 | disposition home or self-care (01) ==
LOC: ER 10:13
DX: G89.29 Other chronic pain (principal); M54.50 Low back pain, unspecified; M23.91 Unspecified internal derangement of right knee; R07.89 Other chest pain; E78.5 Hyperlipidemia, unspecified; F17.210 Nicotine dependence, cigarettes, uncomplicated; E11.9 Type 2 diabetes mellitus without complications; I25.2 Old myocardial infarction; Z95.1 Presence of aortocoronary bypass graft; Z88.8 Allergy status to other drugs, medicaments and biological substances; Z91.012 Allergy to eggs; Z91.018 Allergy to other foods; Z79.899 Other long term (current) drug therapy; Z79.82 Long term (current) use of aspirin; Z79.4 Long term (current) use of insulin
CPT/HCPCS: 99285; 74176; 96374; 71045; 96375; 80076; 80048; 83880; 83690; 85025; 84484; 36415; 93005; 73560; 96376; J2405 ×2; J1170; J2270; A4663

== ENCOUNTER 2023-08-07 09:31 | Emergency (ER) | payer OTHER ==
[~2023-08-07] VITALS: Ht 177.8 cm; Wt 79.4 kg
[~2023-08-07 09:31] MED LIST changes: +AMOX-430 PO; +DEXA4TAB PO; +HYDR-3980 PO; +HYDR4TAB4 PO; +NAPR-1192 PO
[2023-08-07] MEDS ORDERED: SERT100T PO (09:48)
[2023-08-07] MEDS ORDERED: CLOP75TA15 PO (09:48)
[2023-08-07] MEDS ORDERED: QUET50TA PO (09:48)
[2023-08-07] MEDS ORDERED: METF-442 PO (09:48)
[2023-08-07] MEDS ORDERED: OLAN2.5T3 PO (09:48)
[2023-08-07 09:53] LABS: BASOPHILS # (AUTO) 0.1 K/UL (0.0-0.2); BASOPHILS % (AUTO) 1.1 % (0.0-2.0); EOSINOPHILS # (AUTO) 0.1 K/uL (0.0-0.7); HEMATOCRIT 40.6 % (36.7-47.1); HEMOGLOBIN 14.1 g/dL (12.5-16.3); LYMPHOCYTES # (AUTO) 1.7 K/uL (0.8-4.8); LYMPHOCYTES % (AUTO) 23.3 % (20.5-51.5); MEAN CORPUSCULAR HEMOGLOBIN 30.9 uug (23.8-33.4); MEAN CORPUSCULAR HGB CONC 35 g/dL (32.5-36.3); MEAN CORPUSCULAR VOLUME 88.7 fL (73.0-96.2); MONOCYTES # (AUTO) 0.5 K/uL (0.1-1.30); MONOCYTES % (AUTO) 7.1 % (0.0-11.0); NEUTROPHILS % (AUTO) 67.5 % (38.5-71.5); PLATELET COUNT (AUTO) 168 K/uL (152-348); RED BLOOD CELL COUNT(AUTO) 4.58 MIL/uL (4.06-5.63); RED CELL DISTRIBUTION WIDTH 14.4 % (12.1-16.2); WHITE BLOOD COUNT (AUTO) 7.3 K/uL (3.6-10.2)
[2023-08-07 10:09] LABS: DIFFERENTIAL COMMENT 1
[2023-08-07 10:14] LABS: CARBON DIOXIDE 29 mmol/L (21-32); CHLORIDE 104 mmol/L (98-107); CREATININE 0.9 mg/dL (0.6-1.3); GLUCOSE 168 mg/dL (74-106); POTASSIUM 3.9 mmol/L (3.5-5.1); SODIUM SERUM 142 mmol/L (136-145); UREA NITROGEN, BLOOD 13 mg/dL (7-18)
[2023-08-07 10:23] LABS: ALANINE AMINOTRANSFERASE 21 U/L (16-63); ALBUMIN 3.9 g/dL (3.4-5.0); ALKALINE PHOSPHATASE 58 U/L (50-136); ASPARTATE AMINOTRANSFERASE 8 U/L (15-37); BILIRUBIN,DIRECT 0.2 mg/dL (0.0-0.2); BILIRUBIN,TOTAL 0.7 mg/dL (0.2-1.0); TOTAL PROTEIN, SERUM 7.2 g/dL (6.4-8.2)
[2023-08-07 10:24] LABS: ACETAMINOPHEN < 2.0 ug/mL (10-30)
[2023-08-07 10:38] LABS: *BILIRUBIN,URIN NEGATIVE (NEGATIVE); *BLOOD, URINE NEGATIVE (NEGATIVE); *CLARITY,URINE CLEAR (CLEAR); *COLOR,URINE YELLOW (YELLOW); *KETONES,URINE NEGATIVE (NEGATIVE); *PROTEIN,URINE NEGATIVE (NEGATIVE); *UROBILINOGEN,URINE 0.2 E.U./dl (NORMAL); LEUKOCYTE ESTERASE ,URINE NEGATIVE (NEGATIVE); NITRITE, URINE NEGATIVE (NEGATIVE); PH,URINE 6.5 (5.0-8.0); UGLUCOSE NEGATIVE (NEGATIVE)
[2023-08-07 10:56] LABS: *AMPHETAMINE, URINE NEGATIVE (NEGATIVE); *BARBITURATE, URINE NEGATIVE (NEGATIVE); *BENZODIAZEPINE, URINE POSITIVE (NEGATIVE); *CANNABINOID, URINE NEGATIVE (NEGATIVE); *COCCAINE, URINE NEGATIVE (NEGATIVE); *OPIATE, URINE POSITIVE (NEGATIVE); *PHENCYCLIDINE SCREEN,URINE NEGATIVE (NEGATIVE); FENTANYL, URINE NEGATIVE (NEGATIVE)
[2023-08-07 11:00] LABS: ETHANOL 4 MG/DL (0-10)
[2023-08-07] MEDS ORDERED: OLANZAPINE 5 MG TABLET ONE (12:01)
[2023-08-07] MEDS: OLANZAPINE 5 MG TABLET PO ONE (12:02)
[2023-08-07] MEDS: NICOTINE 14 MG/24HR PATCH TD SCH (12:08)
[2023-08-07 14:15] VITALS: O2SAT 100
== END 2023-08-07 14:27 ==
LOC: ER 09:31
DX: F29 Unspecified psychosis not due to a substance or known physiological condition (principal); I45.10 Unspecified right bundle-branch block; E78.5 Hyperlipidemia, unspecified; E11.9 Type 2 diabetes mellitus without complications; F20.9 Schizophrenia, unspecified; F17.200 Nicotine dependence, unspecified, uncomplicated; Z98.890 Other specified postprocedural states; Z79.899 Other long term (current) drug therapy; Z79.82 Long term (current) use of aspirin; Z20.822 Contact with and (suspected) exposure to COVID-19; Z88.1 Allergy status to other antibiotic agents; Z88.5 Allergy status to narcotic agent
CPT/HCPCS: 36415; 84484; 85025; 93005; A4606; A4663; G0480

== ENCOUNTER 2023-09-16 19:58 | Inpatient (IN) | payer MEDICARE, OTHER ==
[~2023-09-16] VITALS: Ht 185.4 cm; Wt 88.5 kg
[~2023-09-16 19:58] MED LIST changes: +CLOP75TA15 PO; +METF-442 PO; +OLAN2.5T3 PO; +QUET50TA PO; +SERT100T PO
[2023-09-16] MEDS ORDERED: LORAZEPAM 2 MG/1 ML VIAL ONE (20:09)
[2023-09-16] MEDS ORDERED: HALOPERIDOL LACTATE 5 MG/1 ML VIAL ONE (20:10)
[2023-09-16] MEDS ORDERED: diphenhydrAMINE 50 MG/1 ML VIAL ONE (20:10)
[2023-09-16] MEDS: LORAZEPAM 2 MG/1 ML VIAL IM ONE (20:14)
[2023-09-16] MEDS: HALOPERIDOL LACTATE 5 MG/1 ML VIAL IM ONE (20:14)
[2023-09-16] MEDS: diphenhydrAMINE 50 MG/1 ML VIAL IM ONE (20:14)
[2023-09-16 21:22] LABS: BASOPHILS # (AUTO) 0.1 K/UL (0.0-0.2); DIFFERENTIAL COMMENT 0; EOSINOPHILS # (AUTO) 0.1 K/uL (0.0-0.7); EOSINOPHILS % (AUTO) 0.6 % (0.0-7.0); HEMATOCRIT 38.2 % (36.7-47.1); LYMPHOCYTES # (AUTO) 0.5 K/uL (0.8-4.8); LYMPHOCYTES % (AUTO) 5.7 % (20.5-51.5); MEAN CORPUSCULAR HEMOGLOBIN 30.7 uug (23.8-33.4); MEAN CORPUSCULAR HGB CONC 34 g/dL (32.5-36.3); MEAN CORPUSCULAR VOLUME 89.8 fL (73.0-96.2); MONOCYTES # (AUTO) 0.3 K/uL (0.1-1.30); MONOCYTES % (AUTO) 2.8 % (0.0-11.0); NEUTROPHILS # (AUTO) 8.5 K/uL (1.8-8.9); NEUTROPHILS % (AUTO) 89.9 % (38.5-71.5); PLATELET COUNT (AUTO) 171 K/uL (152-348); RED BLOOD CELL COUNT(AUTO) 4.25 MIL/uL (4.06-5.63); RED CELL DISTRIBUTION WIDTH 13.3 % (12.1-16.2); WHITE BLOOD COUNT (AUTO) 9.5 K/uL (3.6-10.2)
[2023-09-16 21:25] LABS: *BILIRUBIN,URIN NEGATIVE (NEGATIVE); *BLOOD, URINE NEGATIVE (NEGATIVE); *CLARITY,URINE CLEAR (CLEAR); *COLOR,URINE YELLOW (YELLOW); *KETONES,URINE NEGATIVE (NEGATIVE); *PROTEIN,URINE NEGATIVE (NEGATIVE); *UROBILINOGEN,URINE 0.2 E.U./dl (NORMAL); LEUKOCYTE ESTERASE ,URINE NEGATIVE (NEGATIVE); NITRITE, URINE NEGATIVE (NEGATIVE)
[2023-09-16 21:32] LABS: UGLUCOSE 3+ (NEGATIVE)
[2023-09-16 21:40] LABS: CALCIUM 8.7 mg/dL (8.5-10.1); CARBON DIOXIDE 22 mmol/L (21-32); CHLORIDE 103 mmol/L (98-107); CREATININE 1.4 mg/dL (0.6-1.3); GLUCOSE 374 mg/dL (74-106); POTASSIUM 4.7 mmol/L (3.5-5.1); SODIUM SERUM 137 mmol/L (136-145); UREA NITROGEN, BLOOD 23 mg/dL (7-18)
[2023-09-16 21:42] LABS: ETHANOL < 3 MG/DL (0-10)
[2023-09-16 21:45] LABS: *AMPHETAMINE, URINE NEGATIVE (NEGATIVE); *BARBITURATE, URINE NEGATIVE (NEGATIVE); *BENZODIAZEPINE, URINE NEGATIVE (NEGATIVE); *CANNABINOID, URINE NEGATIVE (NEGATIVE); *COCCAINE, URINE NEGATIVE (NEGATIVE); *OPIATE, URINE NEGATIVE (NEGATIVE); *PHENCYCLIDINE SCREEN,URINE NEGATIVE (NEGATIVE)
[2023-09-16 21:54] LABS: ALANINE AMINOTRANSFERASE 18 U/L (16-63); ALBUMIN 3.5 g/dL (3.4-5.0); ALKALINE PHOSPHATASE 57 U/L (50-136); ASPARTATE AMINOTRANSFERASE 10 U/L (15-37); BILIRUBIN,DIRECT 0.1 mg/dL (0.0-0.2); BILIRUBIN,TOTAL 0.5 mg/dL (0.2-1.0); TOTAL PROTEIN, SERUM 6.5 g/dL (6.4-8.2)
[2023-09-16 21:55] LABS: ACETAMINOPHEN < 2.0 ug/mL (10-30)
[2023-09-16 22:03] LABS: FENTANYL, URINE NEGATIVE (NEGATIVE)
[2023-09-17] MEDS ORDERED: GABA-536 PO (01:58)
[2023-09-17] MEDS ORDERED: DIVA250T4 PO (01:58)
[2023-09-17] MEDS ORDERED: SERTRALINE HCL 50 MG TABLET ONE (08:58)
[2023-09-17] MEDS: SERTRALINE HCL 50 MG TABLET PO ONE (09:00)
[2023-09-17] MEDS ORDERED: METFORMIN HCL 500 MG TABLET ONE (12:55)
[2023-09-17] MEDS: METFORMIN HCL 500 MG TABLET PO ONE (12:56)
[2023-09-17] MEDS ORDERED: TEMAZEPAM 7.5 MG CAPSULE PO PRN (14:15)
[2023-09-17] MEDS ORDERED: ACETAMINOPHEN 325 MG TABLET PO PRN (14:15)
[2023-09-17] MEDS: diphenhydrAMINE 50 MG/1 ML VIAL IM STA (16:07)
[2023-09-17] MEDS: LORAZEPAM 2 MG/1 ML VIAL IM STA (16:07)
[2023-09-17] MEDS: HALOPERIDOL LACTATE 5 MG/1 ML VIAL IM STA (16:07)
[2023-09-17] MEDS: OLANZAPINE 5 MG TABLET PO SCH (21:00)
[2023-09-17] MEDS: QUETIAPINE FUMARATE 100 MG TABLET PO SCH (21:00)
[2023-09-17] MEDS: CLONAZEPAM 0.5 MG TABLET PO PRN (23:10)
[2023-09-18] MEDS: SERTRALINE HCL 50 MG TABLET PO SCH (08:21)
[2023-09-18] MEDS: NICOTINE 21 MG/24HR PATCH TD SCH (09:33)
[2023-09-18] MEDS ORDERED: METO25TA6 PO (10:38)
[2023-09-18] MEDS ORDERED: BLOO-360 IN (10:39)
[2023-09-18] MEDS ORDERED: MONT10TA22 PO (10:39)
[2023-09-18] MEDS ORDERED: INSU100V28 SQ (10:40)
[2023-09-18] MEDS ORDERED: HYDR-4209 PO (10:43)
[2023-09-18] MEDS: diphenhydrAMINE 50 MG/1 ML VIAL IM STA (13:00)
[2023-09-18] MEDS: HALOPERIDOL LACTATE 5 MG/1 ML VIAL IM STA (13:00)
[2023-09-18] MEDS: LORAZEPAM 2 MG/1 ML VIAL IM STA (13:00)
[2023-09-18] MEDS: MONTELUKAST SODIUM 10 MG TABLET PO SCH (16:30)
[2023-09-18] MEDS: CLOPIDOGREL 75 MG TABLET PO SCH (16:30)
[2023-09-18] MEDS: METOPROLOL TARTRATE 25 MG TABLET PO SCH (16:30)
[2023-09-18] MEDS: DEXAMETHASONE 4 MG TABLET PO SCH (16:30)
[2023-09-18] MEDS ORDERED: DEXA4TAB PO (16:41)
[2023-09-18] MEDS: METFORMIN HCL 500 MG TABLET PO SCH (16:52)
[2023-09-19] MEDS ORDERED: DEXAMETHASONE 4 MG TABLET PO SCH (09:00)
[2023-09-19] MEDS: diphenhydrAMINE 50 MG/1 ML VIAL IM ONE (10:08)
[2023-09-19] MEDS: LORAZEPAM 2 MG/1 ML VIAL IM ONE (10:08)
[2023-09-19] MEDS: HALOPERIDOL LACTATE 5 MG/1 ML VIAL IM ONE (10:09)
[2023-09-19] MEDS: OLANZAPINE 5 MG TABLET PO SCH (20:07)
[2023-09-19] MEDS: QUETIAPINE FUMARATE 100 MG TABLET PO SCH (20:07)
[2023-09-20 07:59] VITALS: BP 131/85; TEMP 98.2; O2SAT 99
[2023-09-20] MEDS: HYDROCODONE/APAP 5-325MG TABLET PO PRN (14:48)
[2023-09-20] MEDS ORDERED: DEXTROSE 50% 50 ML DISP.SYRIN IV PRN (15:15)
[2023-09-20 15:23] VITALS: BP 121/83; TEMP 98; O2SAT 98
[2023-09-20] MEDS: INSULIN REGULAR, HUMAN 300 UNIT/3 ML VIAL SQ PRN (15:37)
[2023-09-20] MEDS: BLOOD SUGAR DIAGNOSTIC 1 EACH STRIP VI SCH (17:18)
[2023-09-20 20:00] VITALS: BP 169/91; TEMP 97.8; O2SAT 94
[2023-09-20] MEDS: INSULIN REGULAR, HUMAN 300 UNITS/3 ML VIAL SQ PRN (20:24)
[2023-09-20] MEDS: MAG HYDROX/AL HYDROX/SIMETH 30 ML LIQUID UDC PO PRN (20:29)
[2023-09-21] MEDS: ZOLPIDEM 5 MG TABLET PO PRN (00:15)
[2023-09-21 07:53] VITALS: BP 132/85; TEMP 98; O2SAT 98
[2023-09-21 15:57] VITALS: BP 126/75; TEMP 98; O2SAT 96
[2023-09-21] MEDS: MAGNESIUM HYDROXIDE 30 ML LIQUID UDC PO PRN (16:24)
[2023-09-21 20:00] VITALS: TEMP 97.9
[2023-09-22 16:32] VITALS: BP 152/89; O2SAT 98
[2023-09-22 20:06] VITALS: BP 145/69; TEMP 98.2; O2SAT 99
[2023-09-22] MEDS: INSULIN GLARGINE,HUM 300 UNITS/3 ML CARTRIDGE SQ SCH (20:42)
[2023-09-23 08:09] LABS: CALCIUM 8.9 mg/dL (8.5-10.1); POTASSIUM 4.2 mmol/L (3.5-5.1)
[2023-09-23 08:47] VITALS: BP 129/66; O2SAT 99
[2023-09-23 16:06] VITALS: BP 148/81; O2SAT 99
[2023-09-23 19:43] VITALS: BP 148/70; O2SAT 99
[2023-09-23] MEDS: QUETIAPINE FUMARATE 200 MG TABLET PO SCH (20:34)
[2023-09-24 08:00] VITALS: BP 132/82; O2SAT 99
[2023-09-24 16:00] VITALS: BP 160/86; O2SAT 98
[2023-09-24 19:49] VITALS: BP 136/82; O2SAT 99
[2023-09-24] MEDS: OLANZAPINE 5 MG TABLET PO SCH (20:39)
[2023-09-24] MEDS: DIVALPROEX 500 MG TABLET.DR PO SCH (20:39)
[2023-09-25 09:06] VITALS: BP 112/77; TEMP 98.4; O2SAT 96
[2023-09-25 15:13] VITALS: BP 114/72; TEMP 98.2; O2SAT 99
[2023-09-25 19:51] VITALS: BP 116/74; TEMP 98.1; O2SAT 99
[2023-09-25] MEDS: DIVALPROEX 250 MG TABLET.DR PO SCH (20:39)
[2023-09-25] MEDS: OLANZAPINE 5 MG TABLET PO SCH (21:08)
[2023-09-26 08:07] VITALS: BP 125/77; TEMP 98; O2SAT 98
[2023-09-26 08:57] VITALS: BP 125/77
== END 2023-09-26 11:00 | disposition home or self-care (01) | DRG 885 ==
LOC: ER 20:05 → GPS 09-17 13:47
PROVIDERS: ADMIT Psychiatry & Neurology Psychiatry; ATTEND Internal Medicine
DX: F25.9 Schizoaffective disorder, unspecified (principal); N17.9 Acute kidney failure, unspecified; E11.65 Type 2 diabetes mellitus with hyperglycemia; I45.2 Bifascicular block; R45.851 Suicidal ideations; F29 Unspecified psychosis not due to a substance or known physiological condition; I25.10 Atherosclerotic heart disease of native coronary artery without angina pectoris; E78.5 Hyperlipidemia, unspecified; F17.210 Nicotine dependence, cigarettes, uncomplicated; I10 Essential (primary) hypertension; R45.1 Restlessness and agitation; F15.90 Other stimulant use, unspecified, uncomplicated; I25.2 Old myocardial infarction; Z95.5 Presence of coronary angioplasty implant and graft; Z79.02 Long term (current) use of antithrombotics/antiplatelets; Z79.4 Long term (current) use of insulin; Z79.899 Other long term (current) drug therapy; Z95.1 Presence of aortocoronary bypass graft; Z88.6 Allergy status to analgesic agent; Z91.012 Allergy to eggs; Z88.8 Allergy status to other drugs, medicaments and biological substances; Z91.018 Allergy to other foods; Z91.199 Patient's noncompliance with other medical treatment and regimen due to unspecified reason; Z79.82 Long term (current) use of aspirin; R45.850 Homicidal ideations; F31.9 Bipolar disorder, unspecified
CPT/HCPCS: 36415; 84484; 85025; 93005; A4606; A4663; G0480; J1200; J1630; J1815; J2060; J3490; J8540